=== PATIENT | female | born 1980 | race Caucasian/White ===

== ENCOUNTER 2024-11-28 07:03 | Day surgery (SDC) | payer OTHER, SELFPAY ==
[2024-11-20 13:03] VITALS: BMI 23.0
[2024-11-28] VITALS (8 sets, daily range): BP systolic 107–126; BP diastolic 77–95; PULSE 65–90; RESP 12–20; TEMP 36.2–36.8; O2SAT 96–100; BMI 23.1
--- OUTSIDE RECORDS SUMMARY | 2024-11-28 07:12 | XMS_ITS | Encounter Summary ---
Author Organization [facility] Address [facility] [place] [address] Care Team Providers Care Logistics Solution Manager Name Role Phone Celeste Grossman SUPERVISOR PAINT Primary Care Provider [phone] Encounter Details Date Type Department Care Team (Late st Contact Info) Description 06/20/2023 [place] [employer] Community Message [facility] Medical Group Family and Sports Medicine [place] [address] [place], [facility] Provider Appointment Social History Tobacco Use Types Packs/Day Years Used Date Smoking Tobacco: Former Cigarettes 1 23 Smokeless Tobacco: Never Alcohol Use Standard Drinks/Week Comments Yes 0 (1 standard drink = 0.6 oz pur e alcohol) RARELY PHQ-2 Answer Date Recorded Patient Health Questionnaire-2 Score 4 10/29/2022 Comments No Sex and Gender Information Value Date Recorded Sex Assigned at Female 07/11/2018 2:48 AM ROUTE DELIVERER Legal Sex Female 6:41 PM CDT Gender Identity Female 07/11/2018 2:48 AM ROUTE DELIVERER Sexual Orientation Not on file documented as of this encounter Functional Status * RETIRED Are you deaf or do you have serious difficulty hearing Answer Date of Assessment Author Status No 07/18/2018 10:48 PM CDT Acti ve * RETIRED Are you blind or do you have serious difficulty seeing, even when wearing glasses? Answer Date of Assessment Author Status No 07/18/2018 10:48 PM CDT Acti ve * Do you have serious difficulty walking or climbing stairs? Answer Date of Assessment Author Status Yes 07/18/2018 10:48 PM CDT Marbin Talamantes RN Active * Do you have difficulty dressing or bathing? Answer Date of Assessment Author Status No 07/18/2018 10:48 PM CDT Marbin Talamantes RN Active * Because of a physical, mental, or emotional condition, do you have difficulty doing errands alone such as visiting a doctor's office or shopping? Answer Date of Assessment Author Status No 07/18/2018 10:48 PM CDT Marbin Talamantes RN Active documented as of this encounter Mental Status * Because of a physical, mental, or emotional condition, do you have serious difficulty concentrating, remembering, or making decisions? Answer Entry Date Author Status No 07/18/2018 10:48 PM CDT Marbin Talamantes RN Active documented in this encounter Plan of Treatment Upcoming Encounters Date Type Department Care Team (Late st Contact Info) Description 02/04/2025 8:00 AM CDT Office Visit [facility] Medical Group Family and Sports Medicine - [place] [address] [place] [address] Celeste Grossman NP [address] [place] [address] documented as of this encounter Visit Diagnoses Not on filedocumented in this encounter Additional Health Concerns Assessment Noted Time PHQ-9 Depression Total Score: 14 023 8:41 AM CDT documented as of this encounter Care Teams Logistics Solution Manager Relationship Specialty Start Date End Date Celeste Grossman NP [address] [place] [address] PCP - General Nurse Practitioner Family 04/03/18 documented as of this encounter
--- OUTSIDE RECORDS SUMMARY | 2024-11-28 07:12 | XMS_ITS | Clinical Summary ---
Author Organization [facility] Address [address] [place] [address] Care Team Providers Care Grommet Worker Name Role Phone Celeste Grossman INTERACTIVE MEDIA MARKETING STRATEGIST Primary Care Provider [phone] Allergies Active Allergy Reactions Criticality Noted Date Comments Articaine Anaphylaxis High 07/27/2017 Molds & Smuts Unknown 02/15/2023 Penicillins Hives 06/17/2017 Medications vitamin B-12 1000 MCG tablet Take 1 tablet (1,000 mcg total) by mouth daily. Active cholecalcifero l (VITAMIN D3) 125 MCG (5000 UT) TabIndications :Vitamin D deficiency Take 1 tablet (5,000 Units total) by mouth daily. 30 tablet 07/24/19 22 Active budesonide-for moterol (SYMBICORT) 160-4.5 MCG/ACT inhalerIndicat ions:Wheezing Inhale 2 puffs into the lungs 2 (two) times daily. 10.2 g 5 07/24/19 22 Active Additional Information Patient not taking.Reported on 10/30/2024 albuterol sulfate HFA (VENTOLIN HFA) 108 (90 Base) MCG/ACT inhalerIndicat ions:Wheezing Inhale 2 puffs into the lungs every 4 (four) hours as needed for Wheezing or Shortness of breath. 18 g 3 07/24/19 22 Active Additional Information Patient not taking.Reported on 10/30/2024 ibuprofen (MOTRIN) 600 MG tablet Take 1 tablet (600 mg total) by mouth every 8 (eight) hours as needed. 06/29/19 23 Active traZODone (DESYREL) 50 MG tablet daily. 08/03/19 23 Active buPROPion XL (WELLBUTRIN XL) 300 MG 24 hr tablet Take 1 tablet (300 mg total) by mouth every morning. Active montelukast (SINGULAIR) 10 MG tabletIndicati ons:Seasonal allergic rhinitis, unspecified trigger TAKE 1 TABLET BY MOUTH EVERYDAY AT BEDTIME 90 tablet 3 06/18/19 25 Active celecoxib (CELEBREX) 100 MG capsuleIndicat ions:Chronic midline low back pain without sciatica TAKE 1 CAPSULE BY MOUTH 2 TIMES DAILY FOR 30 DAYS. 60 capsule 08/17/19 25 Active Additional Information Patient not taking.Reported on 10/30/2024 baclofen (LIORESAL) 10 MG tabletIndicati ons:Low back pain, unspecified TAKE 1 TABLET (10 MG TOTAL) BY MOUTH 3 (THREE) TIMES DAILY FOR 30 DAYS. 270 tablet 1 08/28/19 Active Additional Information Patient taking differently:10 mg Oral3 times daily PRN, Reported on 10/30/2024 hydrOXYzine (VISTARIL) 50 MG capsule take 1 capsule by mouth twice a day as needed 06/22/19 25 Active levothyroxine (SYNTHROID) 100 MCG tabletIndicati ons:Hypothyroi dism (acquired) Take 1 tablet (100 mcg total) by mouth every morning. 90 tablet 1 11/02/19 25 Active tirzepatide (ZEPBOUND) 5 MG/0.5ML injectionIndic ations:Weight Loss Inject 5 mg into the skin once a week. Indications: Weight Loss 2 mL 11/28/19 25 Active escitalopram 10 MG tablet Take 1 tablet (10 mg total) by mouth daily. 05/25/19 22 025 Discontinued(T herapy completed) ARIPiprazole (ABILIFY) 2 MG tablet Take 1 tablet (2 mg total) by mouth daily. 01/22/20 025 Discontinued(T herapy completed) cyclobenzaprin e (FLEXERIL) 10 MG tablet Take 1 tablet (10 mg total) by mouth as needed. 025 Discontinued(T herapy completed) levothyroxine (SYNTHROID) 88 MCG tabletIndicati ons:Hypothyroi dism (acquired) TAKE 1 TABLET BY MOUTH EVERY DAY 90 tablet 1 05/31/19 25 025 Discontinued(D ose adjustment) semaglutide (OZEMPIC) 1 mg/dose injection (PEN)Indicatio ns:Prediabetes INJECT 1MG INTO THE SKIN ONCE A WEEK 2 mL 3 06/04/19 25 025 Discontinued(T herapy completed) hydrOXYzine (ATARAX) 50 MG tablet Take 1 tablet (50 mg total) by mouth 2 (two) times daily as needed for Other (.). 025 Discontinued(T herapy completed) ABILIFY 5 MG tablet Take 1 tablet (5 mg total) by mouth daily. 025 Discontinued(T herapy completed) gabapentin (NEURONTIN) 300 MG capsuleIndicat ions:Left hip pain TAKE 3 CAPSULES BY MOUTH 2 TIMES A DAY. 180 capsule 10/23/19 25 025 Discontinued(T herapy completed) tirzepatide (ZEPBOUND) 2.5 MG/0.5ML injectionIndic ations:Weight Loss Inject 2.5 mg into the skin once a week. Indications: Weight Loss 2 mL 10/31/19 25 025 Discontinued Active Problems Problem Noted Date Diagnosed Date Other chest pain 11/08/2021 Dyslipidemia 11/08/2021 Cocaine dependence in remission ([facility] ) 10/20/2021 Opioid dependence ([facility]) 10/20/2021 Posttraumatic stress disorder 10/20/2021 Narcotic abuse in remission 12/28/2020 Current moderate episode of major depressive disorder, unspecified whether recurrent 04/04/2018 Anxiety 04/04/2018 Hypothyroidism (acquired) 04/04/2018 IBS (irritable bowel syndrome) 07/27/2017 Sacroiliitis 07/13/2017 Chronic low back pain 07/13/2017 Chronic pain 02/11/2016 Allergic rhinitis 08/16/2014 Lumbar degenerative disc disease 02/27/2014 MVP (mitral valve prolapse) 08/13/2013 Resolved Problems Problem Noted Date Diagnosed Date Resolved Date Surgical followup 08/02/2018 11/22/2019 Closed fracture of left tibi al plateau, initial encounter 07/17/2018 11/22/2019 Tibial plateau fracture, left 07/11/2018 11/22/2019 Chronic bilateral low back p ain without sciatica 04/04/2018 11/22/2019 Sinusitis 01/03/2018 11/22/2019 Encounters Date Type Department Care Team Description 11/01/2024 Results Follow-Up [facility] [address] [place] [address] Celeste Grossman, IRAIS HEMOGLOBIN, GLYCOSYLATED, TSH W/REFLEX, LIPID PANEL, Additional followed-up results: 2 10/30/2024 11:50 AM CDT Laboratory Only [facility] [address] [place] [phone] Celeste Grossman NP 10/30/2024 11:40 AM CDT Office Visit [facility] [address] [place] [phone] Celeste Grossman, IRAIS Weight Problem (Since stopping Ozempic she has gained. Thyroid issues? Insurance change- Ozempic no longer covered. Stopped Vaping 10/15/24 and no longer takes Gabapentin due to reading that it could effect weight.) 10/30/2024 MyChart Message Enc [facility] [address] [place] [phone] [place], [facility] Provider Zepbound 10/30/2024 Travel 10/23/2024 12:45 PM CDT - 10/23/2024 11:59 PM CDT Hospital Encounter [facility] Mammography [address] [place] [address] Celeste Grossman, INTERACTIVE MEDIA MARKETING STRATEGIST Discharge Disposition: Home or Self Care (Routine Discharge) 10/23/2024 Results Follow-Up [facility] [address] [place] [address] Celeste Grossman, IRAIS MG SCREENING W CYDNEY ABILIO DIGI 10/23/2024 Travel from Last 3 Months Immunizations Immunization Administration Dates Next Due Afluria 36 MONTHS+ (Prefille d Syringe IIV4) 07/19/2018(Deferred: Patient/family declined) Fluzone (IIV3, Trivalent, 0. 5 ML Prefilled Syringe) 02/13/2024 Fluzone 6 Months+ Quad (0.5 mL Prefilled Syringe) 02/15/2023,01/15/2019 PFIZER COVID-19 (ORIGINAL FORMULATION, PURPLE CAP) mRNA, LNP-S, PF, 30 MCG/0.3 ML DOSE 07/10/2020,06/17/2020 Td, Adsorbed, Preservative F ree, Adult Use, Lf Unspecified 04/20/2006 Tdap (Boostrix) 09/23/2018 Tdap (Generic) 09/23/2018 Family History Medical History Relation Comments Hypertension Father Alcohol Abuse Mother Arthritis Mother Cancer Mother Depression Mother Hypertension Mother Breast Cancer Other Diabetes Other Stroke Other Relation Status Comments Father Alive Mother Alive Other Social History Tobacco Use Types Packs/Day Years Used Date Smoking Tobacco: Former Cigarettes 1 23 Passive Smoke Exposure: Past Smokeless Tobacco: Never Tobacco Cessation:Counseling Given: Yes Alcohol Use Standard Drinks/Week Comments Not Currently 0 (1 standard drink = 0.6 oz pur e alcohol) RARELY PHQ-2 Answer Date Recorded Patient Health Questionnaire-2 Score 0 07/04/2023 Comments No Sex and Gender Information Value Date Recorded Sex Assigned at Female 07/11/2018 2:48 AM DECK CADET Legal Sex Female 6:41 PM CDT Gender Identity Female 07/11/2018 2:48 AM DECK CADET Sexual Orientation Not on file Last Filed Vital Signs Vital Sign Reading Time Taken Comments Blood Pressure 139/89 10/30/2024 11:37 AM CDT Pulse 66 10/30/2024 11:37 AM CDT Temperature 36.6 C (97.9 F) 10/30/2024 11:37 AM CDT Respiratory Rate 18 10/30/2024 11:37 AM CDT Oxygen Saturation 99% 10/30/2024 11:37 AM CDT Inhaled Oxygen Concentration - - Weight 60.1 kg (132 lb 6.4 oz) 10/30/2024 11:37 AM CDT Height 152.4 cm (5') 10/30/2024 11:37 AM CDT Body Mass Index 25.86 10/30/2024 11:37 AM CDT Plan of Treatment Upcoming Encounters Date Type Department Care Team (Late st Contact Info) Description 02/04/2025 8:00 AM CDT Office Visit [facility] Medical Group Family and Sports Medicine - [place] [address] [place] [address] Celeste Grossman, INTERACTIVE MEDIA MARKETING STRATEGIST [address] [place] [address] Health Maintenance Due Date Last Done Comments Cervical Cancer Screening Pa p Smear (Age 30 to 64) Every 3 Years 1980 HPV Vaccines (1 - 3-dose SCD M series) 02/28/2007 COVID-19 Vaccine ( - 2023-2 5 season) 2024 07/10/2020, 06/17/2020 PHQ-2 (Physician [place]) 05/09/2024 07/04/2023 Annual Physical 06/14/2025 06/14/2024, 07/04/2023, 05/13/2022 Mammogram Screening 10/23/2026 10/23/2024, 07/21/2022 Cervical Cancer Screening Pa p with HPV Testing (Age 30 to 64) Every 5 Years 11/16/2027 11/15/2022, 09/27/2017, 09/26/2017 Cervical Cancer Screening with HPV 11/16/2027 DTaP, Tdap and Td Vaccines ( 3 - Td or Tdap) 09/23/2028 09/23/2018, 09/23/2018, 04/20/2006 Pneumococcal Vaccine: Pediatrics (0 to 5 Years) and At-Risk Patients (6 to 49 Years) (1 of 2 - PCV) 02/28/2047 Postponed from (Per Provider Recommendation) Hepatitis B Vaccines (1 of 3 - 19+ 3-dose series) 06/14/2089 Postponed from 02/07 (Per Provider Recommendation) Hepatitis C Completed 07/23/2021 Meningococcal B Vaccine Aged Out No l onger eligible based on patient's age to complete this topic Meningococcal Vaccine Aged Out No ligia ofe eligible based on patient's age to complete this topic RSV Immunizations Under 20 Months Aged Out No longer eligible b ased on patient's age to complete this topic Medical Devices Implanted Type Area Php Mysql Developer Device Identifier Shelf Expiration Date Model / Serial / Lot Graft Bone Canc 15ml Cube - [id number] Implanted:Qty: 1 on 07/18/2018 by Eliezer Madrigal MD at [facility] Left: Tibia [employer] 06/05/2023 [id number] / / [id number] Locking Cannulated Screw Implanted:Qty: 1 on 07/18/2018 by Eliezer Madrigal MD at [facility] Left: Tibia [id number] / / Tibial Plate Implanted:Qty: 1 on 07/18/2018 by Eliezer Madrigal MD at [facility] Left: Tibia [id number] / / Cannulated Screw Implanted:Qty: 1 on 07/18/2018 by Eliezer Madrigal MD at [facility] Left: Tibia [id number] / / Cannulated Screw Implanted:Qty: 1 on 07/18/2018 by Eliezer Madrigal MD at [facility] Left: Tibia [id number] / / Locking Screw Implanted:Qty: 1 on 07/18/2018 by Eliezer Madrigal MD at [facility] Left: Tibia [id number] / / Locking Screw Implanted:Qty: 1 on 07/18/2018 by Eliezer Madrigal MD at [facility] Left: Tibia [id number] / / Cortex Screw Implanted:Qty: 1 on 07/18/2018 by Eliezer Madrigal MD at [facility] Left: Tibia [id number] / / Cortex Screw Implanted:Qty: 1 on 07/18/2018 by Eliezer Madrigal MD at [facility] Left: Tibia [id number] / / Locking Cannulated Screw Implanted:Qty: 1 on 07/18/2018 by Eliezer Madrigal MD at [facility] Left: Tibia [id number] / / Procedures Procedure Name Priority Date/Time Associated Diagnosis Comments THYROXINE, FREE (FT4) Routine 10/30/2024 12:10 PM CDT COMPREHENSIVE METABOLIC PANEL Routine 10/30/2024 12:10 PM CDT Screening, lipid LIPID PANEL Routine 10/30/2024 12:10 PM CDT Screening, lipid TSH W/REFLEX Routine 10/30/2024 12:10 PM CDT Screening for thyroid disorder HEMOGLOBIN, GLYCOSYLATED Routine 10/30/2024 12:10 PM CDT Screening for diabetes mellitus (DM) COLLECTION VENOUS BLOOD VENIPUNCTURE Routine 10/30/2024 12:06 PM CDT Hypothyroidism (acquired) MG SCREENING W CYDNEY ABILIO DIGI Routine 10/23/2024 1:02 PM CDT Screening mammogram, encounter for OUTSIDE CYTOPATH CERV/VAG INTERPRET (PAP) 11/15/2022 HEPATITIS C ANTIBODY Routine 07/23/2021 9:48 AM CDT Need for hepatitis C screening test from Last 3 Months or Most Recently Relevant to Health Maintenance Results * (ABNORMAL) TSH W/REFLEX (10/30/2024 12:10 PM CDT) TSH 8.979(H) 0.358 - 3.740 uIU/ML 10/31/2024 3:34 PM CDT [facility] 10/30/2024 12:1 0 PM CDT us Celeste Grossman NP LABORATORY Final Result [facility] [address] [place] [address], [place] [phone] * HEMOGLOBIN, GLYCOSYLATED (10/30/2024 12:10 PM CDT) HGB A1C 4.7 4.5 - 6.2 % 10/31/2024 3:19 PM CDT [facility] ESTIMATED AVG GLUCOSE 88 74 - 106 MG/DL 10/31/2024 3:19 PM CDT [facility] 10/30/2024 12:1 0 PM CDT Celeste Peralta Chauncey INTERACTIVE MEDIA MARKETING STRATEGIST LABORATORY Final Result [facility] [address] [place] [address], * COMPREHENSIVE METABOLIC PANEL (10/30/2024 12:10 PM CDT) SODIUM S/P/B 142 136 - 145 MMOL/L 10/31/2024 3:34 PM CDT -[facility] POTASSIUM S/P/B 4.8 3.5 - 5.1 MMOL/L 10/31/2024 3:34 PM CDT [facility] CHLORIDE S/P/B 103 98 - 107 MMOL/L 10/31/2024 3:34 PM CDT [facility] CO2 27.7 21 - 32 MMOL/L 10/31/2024 3:34 PM CDT -[facility] GLUCOSE 79 70 - 99 MG/DL 10/31/2024 3:34 PM CDT -[facility] BUN 13 7 - 18 MG/DL 10/31/2024 3:34 PM CDT -[facility] CREATININE S/P/B 0.77 0.55 - 1.02 MG/DL 10/31/2024 3:34 PM CDT [facility] CALCIUM S/P/B 9.4 8.4 - 10.5 MG/DL 10/31/2024 3:34 PM CDT -[facility] BILIRUBIN TOTAL S/P/B 0.5 0.2 - 1.0 MG/DL 10/31/2024 3:34 PM CDT -[facility] ALKALINE PHOSPHATASE S/P/B 50 37 - 98 U/L 10/31/2024 3:34 PM CDT [facility] AST 19 15 - 37 U/L 10/31/2024 3:34 PM CDT [facility] ALT 26 14 - 59 U/L 10/31/2024 3:34 PM CDT [facility] TOTAL PROTEIN S/P/B 7.2 6.4 - 8.2 G/DL 10/31/2024 3:34 PM CDT [facility] ALBUMIN S/P/B 4.3 3.4 - 5.0 G/DL 10/31/2024 3:34 PM T [facility] ANION GAP 11.3 5 - 15 MMOL/L 10/31/2024 3:34 PM T [facility] Comment:REFERENCE RANGE NOT ESTABLISHED OSMOLALITY (CALC) 293 MOSM/KG 025 3:34 PM T [facility] Comment:REFERENCE RANGE NOT ESTABLISHED GFR ESTIMATE >90 >90 ML/MIN/1. 73 M2 10/31/2024 3:34 PM T [facility] GFR NOTES GFR REFERENCE S: 10/31/2024 3:34 PM T [facility] Comment: THE ESTIMATED GFR IS CALCULATED USING THE 2020 CKD-EPI EQUATION. THE FOLLOWING CATEGORIES FOR GRADING RENAL FUNCTION ARE RECOMMENDED BY THE INTERNATIONAL SOCIETY OF NEPHROLOGY (KDIGO 2012 CLINICAL PRACTICE GUIDELINE). G1,NORMAL OR HIGH: >89 ml/min/1.73 m2 G2,MILDLY DECREASED: 60-89 ml/min/1.73 m2 G3A,MILDLY TO MODERATELY DECREASED: 45-59 ml/min/1.73 m2 G3B,MODERATELY TO SEVERELY DECREASED: 30-44 ml/min/1.73 m2 G4,SEVERELY DECREASED: 15-29 ml/min/1.73 m2 G5,KIDNEY FAILURE: <15 ml/min/1.73 m2 10/30/2024 12:1 0 PM CDT Celeste M Grossman INTERACTIVE MEDIA MARKETING STRATEGIST LABORATORY Final Result [facility] [address] [place] [address], * (ABNORMAL) LIPID PANEL (10/30/2024 12:10 PM CDT) CHOLESTEROL 253(H) <200 MG/DL 10/31/2024 3:34 PM CDT [facility] TRIGLYCERIDES 76 <150 MG/DL 10/31/2024 3:34 PM CDT [facility] HDL 105 >40 MG/DL 10/31/2024 3:34 PM CDT [facility] LDL-C 133(H) <100 MG/DL 10/31/2024 3:34 PM CDT [facility] VLDL CALCULATION 15 5 - 28 MG/DL 10/31/2024 3:34 PM CDT [facility] CHOL/HDL RATIO 2.4 0.0 - 4.0 10/31/2024 3:34 PM CDT [facility] LDL/HDL 1.3 0.41 - 2.13 10/31/2024 3:34 PM CDT [facility] NON HDL CHOLESTEROL 148(H) <140 MG/DL 10/31/2024 3:34 PM CDT [facility] 10/30/2024 12:1 0 PM CDT us Celeste Grossman INTERACTIVE MEDIA MARKETING STRATEGIST LABORATORY Final Result [facility], [address] [place] [address], * THYROXINE, FREE (FT4) (10/30/2024 12:10 PM CDT) FREE T4 0.86 0.76 - 1.46 NG/DL 10/31/2024 3:59 PM CDT [facility] [place] 10/30/2024 12:1 0 PM CDT Celeste Grossman NP LABORATORY Final Result -[facility]REG[facility] PEDRAZA [address] [facility] [place] [address], [place] [phone] * MG SCREENING W CYDNEY ABILIO DIGI (10/23/2024 1:02 PM CDT) Anatomical Region Laterality Modality Breast Bilateral Mammography 10/23/2024 1:43 PM CDT Impressions 10/23/2024 1:44 PM CDT IMPRESSION: No suspicious mammographic findings. Recommendation: 1. Routine Screening, Bilateral Assessment: ACR BI-RADS 2 - BENIGN FINDING(S) Ordered By: YEIMY KUHN Interpreted By: Luis Alfredo Torres, 10/23/2024 1:43 PM Narrative 10/23/2024 1:44 PM CDT [address] [address] Examination: Screening bilateral mammogram Exam Date/Time: 10/23/2024 12:45 PM Clinical history: No current complaints. Comparison: 07/21/2029 Technique: Digital screening mammography of both breasts was performed. Breast tomosynthesis acquisitions were obtained and reviewed. This study was read with the assistance of a computer-aided detection system. Tissue density: There are scattered areas of fibroglandular density. Findings: No suspicious masses, malignant appearing calcifications, skin thickening or other abnormalities are present. No significant change from the prior exam. Yeimy Kuhn MD MAMMO Final Result * PAP SMEAR WITH HPV (11/15/2022) 11/15/2022 [facility] Scanned SCANNING Final Resu lt * HEPATITIS C ANTIBODY (07/23/2021 9:48 AM CDT) HEPATITIS C AB NON-REACTI VE NON-REACT JULIANA 07/23/2021 6:35 PM CDT [facility] Comment: ANTIBODIES TO HCV NOT DETECTED. DOES NOT EXCLUDE THE POSSIBILITY OF EXPOSURE TO HCV. 07/23/2021 9:48 AM CDT Celeste Grossman INTERACTIVE MEDIA MARKETING STRATEGIST LABORATORY Final Result [facility] [address] [place] [address], [id number] from Last 3 Months or Most Recently Relevant to Health Maintenance Insurance [facility] Advance Directives * Full Code (Latest Code Status on File) Date Activated Date Inactivated Comments 07/18/2018 9:32 PM 07/19/2018 2:03 PM * Full Code Date Activated Date Inactivated Comments 07/11/2018 3:35 AM 07/13/2018 4:04 PM Care Teams Grommet Worker Relationship Specialty Start Date End Date Celeste Grossman, INTERACTIVE MEDIA MARKETING STRATEGIST [address] [place], [place] [id number] PCP - General Nurse Practitioner Family 04/03/18
--- OUTSIDE RECORDS SUMMARY | 2024-11-28 07:12 | XMS_ITS | Data Portability ---
Author Organization [facility] , [facility] Address [address] [place] [address] Assessment No assessment recorded. Plan of Treatment Reminders Order Date Submit Date Provider Last Modified By Organization Details Last Modified Time Details Appointments None recorded. Lab lh + FSH, serum 2023 024 [employer] [facility]ja, [address] [place], [address], 4 13:32:40 testosteron e, free + total, serum 2023 024 Glyde [facility], [address] [place], [address], 4 20:13:53 HPV E6+E7 mRNA, qualitative PCR, cervix 2022 023 [employer] Benja, [address] [place], [address], 3 15:32:16 pap, LB 2022 023 Glyde [facility], [address] [place], [address], 3 21:02:34 Referral None recorded. Procedures None recorded. Surgeries None recorded. Imaging MAMMO, screening, digital, bilateral 2023 024 [email or web address] Not available 5 08:41:02 MAMMO, screening, digital, bilateral 2022 023 [email or web address] Not available 3 12:54:40 Medication Orders Wellbutrin XL 300 mg 24 hr tablet, extended release 2022 023 [facility] [id number], [address], 3 08:48:47 Lexapro 10 mg tablet 2022 023 [facility] [id number], [address], 3 18:48:13 estradiol 1 mg tablet 2021 022 [email or web address] [facility] [id number], [address], 4 14:45:10 Lexapro 10 mg tablet 2021 022 [facility] [id number], [address], 2 13:01:27 Patient TargetsNo targets recorded. Patient Instructions Encounter Date Encounter Id Patient Instructions Last Modified By Organization Details Last Modified Time 11/15/2022 [id number] A healthy lifestyle: care instructions Not available 11/15/2022 16:22:32 substance use disorder: care instructions Not available 11/15/2022 16:22:33 tobacco cessation Not availabl e 11/15/2022 16:22:32 Following the My[employer] Food Guide: Care Instructions Not available 11/15/2022 16:22:33 exercise program : getting started Not available 11/15/2022 16:22:33 control counseling Not available 11/15/2022 16:22:33 11/18/2023 [id number] body mass index: care instructions Not available 11/18/2023 15:40:42 mammogram: about this test Not available 11/18/2023 15:40:42 Reason for Referral None Reported. Results Created Date Observation Date Name Description Value Unit Range Abnormal Flag Note LastModifiedBy Organization Detail LastModifiedTime 11/22/19 24 11/22/2023 TESTO STERO NE, FREE (DIAL YSIS) AND TOTAL ,MS testosterone , total, MS 23 NG/dL 2-45 For addit ional infor mariana nlucy refer to https ://ed ucati on.qu [employer]. [employer]/f aq/FA Q165 (This link is being provi ded for infor matio nal/e ducat ional purpo ses only. ) (Note ) This test was devel oped and its jules tical perfo rmanc e ruth cteri stics have been deter mined by [employer]. It has not been clear ed or appro axel by the FDA. This assay has been valid ated pursu ant to the CLIA regul ation s and is used for clini joe purpo ses. Not Available [facility] [address] [place], [address], 11/22/2023 20:13:53 11/22/19 24 11/22/2023 TESTO STERO NE, FREE (DIAL YSIS) AND TOTAL ,MS testosterone , free 1.3 pg/mL 0.1-6. 4 (Note ) This test was devel oped and its jules tical perfo rmanc e ruth cteri stics have been deter mined by [employer]. It has not been clear ed or appro axel by the FDA. This assay has been valid ated pursu ant to the CLIA regul ation s and is used for clini joe purpo ses. MDF med fusio n [address] [facility] [address] [facility] [address] [phone] Flor Perla MD, PhD NO COLLE CTION DATE RECEI AXEL. WE HAVE USED THE DATE THE SPECI MEN WAS RECEI AXEL BY THIS LABOR ATORY THE COLLE CTION DATE. IF THIS IS INCOR RECT, PLEAS E CONTA CT CLIEN T SERVI MARBELLA. PHONE NUMBE R: [phone] Not Available [address] [address] [place], [address], 11/22/2023 20:13:53 11/16/19 23 11/16/2022 HPV HIGH RISK HPV high risk Negati ve negati ve normal The HPV High Risk assay is inten ded for use as co-te sting with cytol ogy and not as a subst itute for regul ar cervi joe cytol ogy scree johnny. This assay is not inten ded for use as a scree johnny devic e for women under age 30 with kassandra l cervi joe cytol ogy. Not Available [address], [address], 11/16/2022 15:32:16 11/16/19 23 11/17/2022 THINP REP TIS PAP clinical information: normal None given Not Available [employer] [address] [address] [place], [address], 11/17/2022 21:02:34 11/16/19 23 11/17/2022 THINP REP TIS PAP LMP: normal None given Not Available [employer] [address], [address], 11/17/2022 21:02:34 11/16/19 23 11/17/2022 THINP REP TIS PAP prev. Pap: normal None given Not Available [employer] [address] [address] [place], [address], 11/17/2022 21:02:34 11/16/19 23 11/17/2022 THINP REP TIS PAP prev. BX: normal None given Not Available [employer] [address] [address] [place], [address], 11/17/2022 21:02:34 11/16/19 23 11/17/2022 THINP REP TIS PAP source: normal None given Not Available [employer] [address] [address] [place], [address], 11/17/2022 21:02:34 11/16/19 23 11/17/2022 THINP REP TIS PAP statement of adequacy: normal Satis facto ry for evalu ation . Endoc ervic al/tr ansfo rmati on zone compo nent prese nt. Age and/o r menst rual statu s not provi ded Not Available [address] [address] [place], [address], 11/17/2022 21:02:34 11/16/19 23 11/17/2022 THINP REP TIS PAP interpretati on/result: normal Cytol ogy Resul ts: Negat criselda for intra epith elial lesio n or mak ziegler . Not Available [address] [address] [place], [address], 11/17/2022 21:02:34 11/16/19 23 11/17/2022 THINP REP TIS PAP comment: normal This Pap test has been evalu ated with compu ter ramakrishna lul [employer] ology . Not Available [address] [address] [place], [address], 11/17/2022 21:02:34 11/16/19 23 11/17/2022 THINP REP TIS PAP cytotechnolo gist: normal MVB, CT( CP) CT Scree johnny Locat ion: [address] [address] [place] [address] Not Available [address] [address] [place], [address], 11/17/2022 21:02:34 11/16/19 23 11/17/2022 THINP REP TIS PAP comment EXPLA NATOR Y NOTE: The Pap is a scree johnny test for cervi joe cance r. It is not a diagn ostic test and is subje ct to false negat criselda and false posit criselda resul ts. It is most relia ble when a satis facto ry sampl e, regul andree obtai niles, is submi tted with relev ant clini joe findi ngs and histo ry, and when the Pap resul t is evalu ated along with histo sekou and curre nt clini joe infor mariana n. Not Available [facility] [address] , [place], [address], 11/17/2022 21:02:34 11/18/19 24 11/21/2023 FSH AND LH FSH 12.0 mIU/m L Refer ence Range s are for femal es aged 18 years - Adult Kassandra l Menst ruati ng Femal e: Folli cular phase : 2.5-1 0.2 mIU/m L Mid-C ycle Peak: 3.4-3 3.4 mIU/m L Lutea l phase : 1.5-9 .1 mIU/m L Pregn ant: <0.3 mIU/m L Post- menop ausal : 23.0- 116.6 mIU/m L Not Available [facility] [address] [place] [address], [address], 11/21/2023 13:32:40 11/18/19 24 11/21/2023 FSH AND LH LH 12.86 U/L Refer ence Range s are for femal es aged 18 years - Adult Kassandra l Menst ruati ng Femal e: Folli cular phase : 1.9-1 2.5 mIU/m L Mid-C ycle Peak: 8.7-7 6.3 mIU/m L Lutea l phase : 0.5-1 6.9 mIU/m L Pregn ant: <0.1- 1.5 mIU/m L Post- menop ausal : 15.9- 54.0 mIU/m L Contr acept sara: 0.7-5 .6 mIU/m L Not Available [place], [address], 11/21/2023 13:32:40 Result Notes None recorded. Problems Name Problem SNOMED Code Status Onset Date Resolution Date Notes Provider Name and Address Organization Details Recorded Time Finding of pattern of menstrua l cycle 863448218 Completed 201905/25/2021 Excessive and frequent menstruat ion with irregular cycle; Severity: Moderate Progress: Stable Added By: Hortencia Severino Add to Current Problems: YES ProblemSt atus: Current Eve rockwell, [facility] 2 11:59:23 Pain in coccyx 32827393 Completed 201905/25/2021 Sacrococc ygeal disorders , not elsewhere classifie d; Severity: Moderate Progress: Stable Added By: Brendan Perry Add to Current Problems: YES ProblemSt atus: Current Eve rockwell, [facility] 2 11:59:28 Problem Notes None recorded. Procedures Surgical History Date Name Laterality Status Provider Name and Address Organization Details Recorded Time 11/16/19 23 Date of Last Pap Smear completed Mary Grant MD [employer] IV 11/18/2023 14:37:10 10/24/19 23 Most Recent Mammogram completed John Steph [facility] 11/15/2022 15:41:00 04/09/20 20 Hysteroscopy ablation completed Brendan Perry MD [address] [place], [address] 05/25/2021 12:44:36 04/08/20 19 open reduction of fracture of tibia with internal fixation completed Anne Caidylanjosue [facility] 11/18/2023 14:55:52 procedure on foot completed Debi Hayden [facility] 05/22/2021 13:17:03 Imaging Results None recorded. Procedure Notes None recorded. Medical Equipment None Reported. Allergies Allergen ID Allergen Name Allergen Category Reaction Reaction Severity Criticality Documentation Date Start Date Code Code System Note Provider Name and Address Organization Details Recorded Time 775283 Product containin g penicilli n (product) medicatio n Not available Not available Not available 02/27/20212019 53078 8001 SNOMED Sever ity: Moder ate; Not Available [employer] 01:19:21 259649 articaine Not available Not available Not available Not available 02/27/20212019 04288 4 RxNorm [facility], [facility] 14:35:06 633687 house dust allergeni c extract environme nt,medica tion Not available Not available Not available 11/15/2022 14231 9 RxNorm [facility] 3 15:31:57 674051 mold extract environme nt Not available Not available Not available 11/15/2022 69295 8 RxNorm oHrtencia rockwell, [facility] 3 15:31:57 Medications Name Sig Start Date Stop Date Status Note LastModified by Organization Details LastModified Time cyclobenz aprine 10 mg tablet TAKE 1 TABLET BY MOUTH THREE TIMES A DAY NEEDED FOR MUSCLE SPASMS 11/17 completed Not Available Not Available Not Available venlafaxi ne 75 mg tablet take 1 tablet (75 mg) by oral route 2 times per day with food 11/15 completed venlafax ine 75 mg oral tablet RxNorm: 736849 Allow Substitu tion: False Refill Denied: No Refill DateOccu rred: 05/30/19 Edited by: Hortencia Constantino ) on 05/30/19 Stopped by: Hortencia Constantino ) on Not Available Not Available Not Available clindamyc in HCl 300 mg capsule TAKE 1 CAPSULE BY MOUTH 4 TIMES A DAY FOR 7 DAYS 11/17 completed Not Available Not Available Not Available trazodone 50 mg tablet TAKE 1 TABLET BY MOUTH EVERY DAY AT BEDTIME NEEDED FOR 30 DAYS active Not Available Not Available No t Available Vivelle-D ot 0.1 mg/24 hr transderm al patch apply 1 patch by transder mal route twice weekly 05/25 completed Vivelle- Dot 0.1 mg/24 hr Transder mal Patch, Transder mal Semiweek ly RxNorm: 593545 Allow Substitu tion: True Refill Denied: No Edited by: Brendan Bhakta) on 02/19/20 Stopped by: Brendan Bhakta) on Not Available Not Available Not Available ibuprofen 800 mg tablet take 1 tablet (800 mg) by oral route 3 times per day with food for the 1st 2 days and then q8 hrs as needed 11/15 completed ibuprofe n 800 mg oral tablet RxNorm: 989771 Allow Substitu tion: True Refill Denied: No Edited by: Brendan Bhakta) on 04/15/20 Stopped by: Brendan Bhakta) on Not Available Not Available Not Available prednison e 20 mg tablet TAKE 3 TABLETS DAILY FOR 3 DAYS, 2 TABLETS DAILY FOR 3 DAYS, THEN 1 TABLET DAILY FOR 3 DAYS 11/15 completed Not Available Not Available Not Available Prometriu m 100 mg capsule take 1 capsule orally qhs 05/25 completed Prometri um 100 mg oral capsule RxNorm: 279690 Allow Substitu tion: True Refill Denied: No Edited by: Brendan Bhakta) on 02/19/20 Stopped by: Brendan Bhakta) on Not Available Not Available Not Available sertralin e 100 mg tablet take 1 tablet (100 mg) by oral route once daily 11/17 completed sertrali ne 100 mg oral tablet RxNorm: 872604 Allow Substitu tion: False Refill Denied: No Refill DateOccu rred: 05/30/19 Edited by: Hortencia Constantino ) on 05/30/19 Stopped by: Hortencia Constantino ) on Not Available Not Available Not Available quetiapin e 200 mg tablet 05/25 completed Not Available Not Available Not Available clonazepa m 1 mg tablet take 1 tablet (1 mg) by oral route 2 times per day 05/25 completed clonazeP AM 1 mg oral tablet RxNorm: 122352 Allow Substitu tion: False Refill Denied: No Refill DateOccu rred: 05/30/19 Edited by: Hortencia Constantino ) on 05/30/19 Stopped by: Hortencia Constantino ) on Not Available Not Available Not Available hydroxyzi ne pamoate 50 mg capsule TAKE 1 CAPSULE BY MOUTH EVERY 6 HOURS NEEDED active Not Available Not Available No t Available metronida zole 500 mg tablet take 1 tablet (500 mg) by oral route 2 times per day and take with yogurt and start 2 days after the procedur e 05/25 completed metroNID AZOLE 500 mg oral tablet RxNorm: 666658 Allow Substitu tion: True Refill Denied: No Edited by: Brendan Bhakta) on 04/15/20 Stopped by: Brendan Bhakta) on Not Available Not Available Not Available hydroxyzi ne HCl 50 mg tablet TAKE 1 TABLET BY MOUTH TWICE A DAY NEEDED FOR 30 DAYS active Not Available Not Available No t Available acetamino phen 300 mg-codein e 30 mg tablet TAKE 1 TABLEY BY MOUTH EVERY 6 HOURS NEEDED FOR PAIN 11/15 completed Not Available Not Available Not Available quetiapin e 100 mg tablet TAKE 1 TABLET BY MOUTH EVERYDAY AT BEDTIME 11/17 completed Not Available Not Available Not Available lithium carbonate ER 450 mg tablet,ex tended release TAKE 1 TABLET BY MOUTH EVERYDAY AT BEDTIME 11/17 completed Not Available Not Available Not Available oxycodone -acetamin ophen 5 mg-325 mg tablet take 1 po q 6 hrs as needed for pain 05/25 completed oxyCODON E-acetam inophen 5-325 mg oral tablet RxNorm: 2770330 Allow Substitu tion: True Refill Denied: No Edited by: Brendan Bhakta) on 04/15/20 Stopped by: Brendan Bhakta) on Not Available Not Available Not Available levothyro xine 88 mcg tablet TAKE 1 TABLET BY MOUTH EVERY DAY active Not Available Not Available No t Available methocarb melody 750 mg tablet 05/25 completed Not Available Not Available Not Available estradiol 1 mg tablet TAKE 1 TABLET BY MOUTH EVERY DAY TO HELP PREVENT ABNORMAL BLEEDING OR BONE LOSS 11/17 completed Not Available Not Available Not Available baclofen 10 mg tablet TAKE 1 TABLET (10 MG TOTAL) BY MOUTH 3 (THREE) TIMES DAILY FOR 30 DAYS. active Not Available Not Available No t Available doxycycli ne monohydra te 100 mg capsule 1 capsule( or tab) po bid for 7 days and may substitu te any form of doxycycl ine 05/25 completed doxycycl ine monohydr ate 100 mg oral capsule RxNorm: 7799672 Allow Substitu tion: True Refill Denied: No Edited by: Brendan Bhakta) on 04/15/20 Stopped by: Brendan Bhakta) on Not Available Not Available Not Available levothyro xine 50 mcg tablet take 1 tablet (50 mcg) by oral route once daily 11/17 completed Not Available Not Available Not Available cephalexi n 500 mg capsule take 1 capsule (500 mg) by mouth twice a day for 10 days (started on 0) 05/25 completed cephALEX in 500 mg oral capsule RxNorm: 489410 Allow Substitu tion: False Refill Denied: No Refill DateOccu rred: 05/30/19 Edited by: Hortencia Constantino ) on 05/30/19 Stopped by: Hortencia Constantino ) on Not Available Not Available Not Available trazodone 150 mg tablet 05/25 completed Not Available Not Available Not Available gabapenti n 300 mg capsule TAKE 3 CAPSULES BY MOUTH 2 TIMES A DAY. active Not Available Not Available No t Available montel[address] st 10 mg tablet TAKE 1 TABLET BY MOUTH EVERYDAY AT BEDTIME active Not Available Not Available No t Available hydroxyzi ne HCl 25 mg tablet take 1 to 2 tablets (25 mg)po 3 times qd prn for nausea,h eadaches ,insomni a, anxiety, pain,may substitu e as a capsule or vistaril 05/25 completed hydrOXYz ine HCL 25 mg oral tablet RxNorm: 168440 Allow Substitu tion: True Refill Denied: No Edited by: Brendan Bhakta) on 04/15/20 Stopped by: Brendan Bhakta) on Not Available Not Available Not Available furosemid e 20 mg tablet TAKE 1 TABLET BY MOUTH EVERY DAY IN THE MORNING 11/15 completed Not Available Not Available Not Available gabapenti n 100 mg capsule 05/25 completed Not Available Not Available Not Available ibuprofen 600 mg tablet TAKE 1 TABLET BY MOUTH EVERY 8 HOURS NEEDED FOR PAIN 11/15 completed Not Available Not Available Not Available celecoxib 100 mg capsule TAKE 1 CAPSULE BY MOUTH 2 TIMES DAILY FOR 30 DAYS. active Not Available Not Available No t Available naproxen 500 mg tablet TAKE 1 TABLET BY MOUTH TWICE A DAY NEEDED 11/15 completed Not Available Not Available Not Available olanzapin e 5 mg disintegr ating tablet PLACE ONE (1) TABLET IN MOUTH AND ALLOW TO DISSOLVE ONCE A DAY, NEEDED FOR AGITATIO N active Not Available Not Available No t Available escitalop shira 10 mg tablet TAKE 1 TABLET BY MOUTH EVERY DAY 2024 active Not Available Not Available Not Avai lable aripipraz ole 5 mg tablet TAKE 1 TABLET BY MOUTH EVERY DAY active Not Available Not Available No t Available bupropion HCl XL 300 mg 24 hr tablet, extended release TAKE 1 TABLET BY MOUTH EVERY DAY IN THE MORNING active Not Available Not Available No t Available bupropion HCl XL 150 mg 24 hr tablet, extended release TAKE 1 TABLET BY MOUTH EVERY DAY IN THE MORNING FOR 30 DAYS active Not Available Not Available No t Available topiramat e 50 mg tablet 05/25 completed Not Available Not Available Not Available aripipraz ole 2 mg tablet TAKE 1 TABLET BY MOUTH EVERY DAY 11/17 completed Not Available Not Available Not Available quetiapin e 50 mg tablet 05/25 completed Not Available Not Available Not Available Symbicort 160 mcg-4.5 mcg/actua tion HFA aerosol inhaler inhale 2 puffs by inhalati on route 2 times per day in the morning andeveni ng 11/15 completed Symbicor t 160-4.5 mcg/actu ation Inhalati on HFA Aerosol Inhaler RxNorm: 8994341 Allow Substitu tion: False Refill Denied: No Refill DateOccu rred: 05/30/19 Edited by: Hortencia Constantino ) on 05/30/19 Stopped by: Hortencia Constantino ) on Not Available Not Available Not Available B12 active Not Available Not Availa ble Not Available Vitamin D3 125 mcg (5,000 unit) tablet active Vitamin D3 125 mcg (5,000 unit) oral tablet RxNorm: 181012 Allow Substitu tion: False Refill Denied: No Refill DateOccu rred: 05/30/19 Edited by: Brendan Bhakta) on 05/30/19 Stopped by: Brendan Bhakta) on Not Available Not Available Not Available Latuda 60 mg tablet 05/25 completed Not Available Not Available Not Available ProAir RespiClic k 90 mcg/actua tion breath activated inhale 1 - 2 puffs (90 - 180 mcg) by inhalati on route every 4 hours as needed 05/25 completed ProAir RespiCli ck 90 mcg/actu ation Inhalati on Aerosol Powder, Breath Activate d RxNorm: 2566514 Allow Substitu tion: False Refill Denied: No Refill DateOccu rred: 05/30/19 Edited by: madelyn( Hortencia Severino ) on 05/30/19 Stopped by: Hortencia Constantino ) on Not Available Not Available Not Available Ozempic 0.25 mg or 0.5 mg (2 mg/1.5 mL) subcutane ous pen injector INJECT 0.5 MG INTO THE SKIN EVERY 7 DAYS. 11/15 completed Not Available Not Available Not Available [facility] 75 mg disintegr ating tablet TAKE ONE TABLET 75MG EVERY OTHER DAY FOR MIGRAINE PREVENTI ON. 05/25 completed Not Available Not Available Not Available Ozempic 1 mg/dose (4 mg/3 mL) subcutane ous pen injector INJECT 1MG INTO THE SKIN ONCE A WEEK active Not Available Not Available No t Available Ozempic 0.25 mg or 0.5 mg (2 mg/3 mL) subcutane ous pen injector INJECT 0.5 MG INTO THE SKIN EVERY 7 DAYS. INDICATI ONS: DIABETES 11/17 completed Not Available Not Available Not Available Vitals Date Recorded Body height Body mass index (BMI) Body weight Body temperature Systolic And Diastolic Provider Name and Address Organization Details Last Updated DateTime 05/25/2021 152.4 cm 27.7 kg/m2 47960.6 8 g 97.2 [degF] 122/70 mm[Hg] Eve Vela [facility] 2 11:55:08 Date Recorded Body height Body mass index (BMI) Body weight Body temperature Systolic And Diastolic Provider Name and Address Organization Details Last Updated DateTime 11/15/2022 152.4 cm 24.3 kg/m2 75583.8 9 g 97 [degF] 100/60 mm[Hg] John Choi [facility] 3 15:42:59 Date Recorded Body height Body mass index (BMI) Body weight Body temperature Systolic And Diastolic Provider Name and Address Organization Details Last Updated DateTime 11/18/2023 152.4 cm 23.9 kg/m2 65788.9 9 g 97.9 [degF] 100/68 mm[Hg] Anne Garza [facility] 4 14:43:09 Social History Question Answer Notes LastModified by [employer] Details LastModified Time Tobacco Smoking Status Former Smoker Hortencia Garcia null, [facility] 11/15/2022 15:31:59 Are You Blind Or Do You Have Difficulty Seeing? No Information not available 11/15/2022 Are You Deaf Or Do You Have Serious Difficulty Hearing? No Information not available 11/15/2022 What Type Of Diet Are You Following? REGULAR [email or web address] Information not available 05/22/2021 What Is The Highest Grade Or Level Of School You Have Completed Or The Highest Degree You Have Received? [id number] Information not available 05/22/2021 When Did You Quit Smoking? 1-5yearssinc elastcigaret te Information not available 11/15/2022 How Many Children Do You Have? 3 [email or web address] Information not available 05/22/2021 Are There Any Occupational Health Risks Where You Work? Yes [email or web address] Information not available 05/22/2021 What Is Your Relationship Status? [email or web address] Information not available 05/22/2021 Are You Sexually Active? Yes [email or web address] Information not available 05/22/2021 How Much Tobacco Do You Smoke? 0.5 PPD [email or web address] Information not available 05/22/2021 Sex: Unknown Functional Status Question Answer Note LastModified by [employer] ion Details LastModified Time How many times per week do you consume alcohol? Less than 1 time per week Information not available 11/18/2023 Do you use any illicit or recreational drugs? No Information not available 05/22/2021 What is your level of alcohol consumption? Occasional Information not available 11/18/2023 Are you currently employed? 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 Current user of electronic cigarettes Information not available 11/15/2022 What is your exercise level? Occasional Information not available 11/15/2022 Mental Status None recorded. Family History Relationship Description Onset Age of this Age Resolved Age Notes LastModified by Organization Details LastModified Time Mother Deep venous thrombosis had PE during pregna ncy [email or web address] Not available 11/18/2023 14:33:27 Mother Hypothyroidi [facility]57 Not available 05/22 12:10:12 Mother Depressive disorder [email or web address] Not available 11/06 15:31:57 Father Hyperlipidem ia 9 Not available 2023 14:33:27 Father Essential hypertension [email or web address] Not available 04/2024 14:33:27 Father Hypertensive disorder [email or web address] Not available 11/06 15:31:57 Maternal Aunt Malignant tumor of breast 9 Not available 2023 14:33:27 Paternal Grandmother Diabetes mellitus Not available 05/22 12:09:50 Sister Hypothyroidi [facility]57 Not available 05/22 12:10:12 Sister Depressive disorder [email or web address] Not available 11/06 15:31:57 Unspecified Relation Malignant tumor of breast [email or web address] Not available 11/06 15:31:57 Maternal Grandmother Depressive disorder [email or web address] Not available 11/06 15:31:57 Paternal Grandfather Malignant neoplasm of lung [email or web address] Not available 11/06 15:31:57 Medical History Condition Response Other Cancer N High Blood Pressure N Colon Cancer N Cytomegalovirus N Hyperthyroidism N Breast Cancer N Herpes (HSV) N Blood Transfusion N MRSA N Lung Cancer N Hypothyroidism Y Depression Y Incontinence N Panic Attacks N Neurological Disorder N Deep Vein Thrombosis N Anxiety Disorder Y Autoimmune disease N Arthritis N Tuberculosis/Positive PPD N Shingles N Polycystic Ovarian Syndrome N Cervical Cancer N Chlamydia N Hematuria N Stroke N Varicosities N Crohn's Disease N Seasonal allergies Y Alzheimer's/Dementia N COPD/Emphysema N HPV/Genital Warts N Endometriosis N IBS (Irritable Bowel Syndrome) N History of Abnormal Pap N High Cholesterol N Liver Disease N Kidney Infection N Fibromyalgia N Ulcer N Kidney Disease N HIV N Gallbladder disease N Sickle Cell Disease/Trait N Von Willebrand disease N ADD/ADHD N Eating Disorder N Anemia N Diabetes Mellitus (non-insulin dependent ) N Ovarian Problems N Multiple Sclerosis N Gonorrhea N Frequent Urinary Tract infections N Osteopenia N Headaches/migraines N GERD (reflux) N Ovarian Cancer N Diabetes (insulin dependent) N Seizures/Epilepsy N Fibroids N Heart Attack N Asthma N Lupus N Endometrial Cancer N Rubella N Blood Clotting Disorder N Bipolar Disorder N Diabetes Mellitus (during ) N Ulcerative Colitis N Hepatitis N Heart Disease N Pulmonary Embolism N RPR N Chicken Pox N Osteoporosis N Gynecological History Statement/Question Response Date of last HPV 11/15/2022 Date of LMP Most Recent Bone Density HPV Vaccine N Date of Last Pap Smear 11/15/2022 Most Recent Mammogram 10/23/2022 Current Control Method Partner Vas ectomy Age at Menarche 9 Obstetrics History GPAL:G 4 P 3 0 1 3 Type Value Multiple Births 0 Full Term 3 Induced 0 Spontaneous 1 Premature 0 Living 3 Ectopics 0 Total 4 Past Encounters Encounter ID Performer Location Encounter Start Date Encounter Closed Date Diagnosis/Indication Diagnosis SNOMED-CT Code Diagnosis ICD10 Code Diagnosis Note [id number] Brendan Perry MD [address] [address] 05/25/2021 11:14:05 05/25/2021 13:03:31 Premenstrual dysphoric disorder 876890 F32.81 Discussed at length medication options and discussed with them they may feel more depressed for the first week secondary to increased REM sleep and sleep adjustment s. Patient is not suicidal and has no suicidal ideations. we will need to see her back in 8 weeks for a follow up and stressed the importance of close follow up as well as benefits of having a counselor. We discussed a healthy diet and exercise. We discussed length of time to be on medication s as well as to start slow with the medication and take 1/2 the dose for 7-28 days before increasing to full dose as well as tapering off slowly as well over a 1 month period of time [id number] Brendan Perry MD [address] [address] 11/15/2022 15:09:46 12/06/2022 10:26:48 Screening for malignant neoplasm of breast 900711318 Z12.39 Surveillan ce of contraception [id number] Z30.40 doesnt need Premenstru al dysphoric disorder 839811 F32.81 Discussed at length medication options and discussed with them they may feel more depressed for the first week secondary to increased REM sleep and sleep adjustment s. Patient is not suicidal and has no suicidal ideations. we will need to see her back in 8 weeks for a follow up and stressed the importance of close follow up as well as benefits of having a counselor. We discussed a healthy diet and exercise. We discussed length of time to be on medication s as well as to start slow with the medication and take 1/2 the dose for 7-28 days before increasing to full dose as well as tapering off slowly as well over a 1 month period of time Gynecologi c examination [id number] Z01.89 y.o. here for annual exam. - Pap up to date from , discussed natural course of HPV infection, ASCCP guidelines . Plan to repeat cotesting in - Contracept criselda counseling : Discussed options including OCPs, NuvaRing, Nexplanon, hormonal and copper IUDs. Discussed risks, benefits, and side effects of each option, including risk of VTE with hormonal contracept ion and uterine perforatio n with IUD. - Routine labs done with PCP - Mammo last year WNL, discussed option for yearly or q2 yr screening in 40s based on different guideline recommenda tions, pt without family hx, would like to proceed with q2yr screening, repeat next year - Depression screen NEG - BMI counseling , diet and exercise reviewed - RTO for annual or PRN Chronic constipation [id number] 104673 K59.09 TESTS/PROC EDURES: will get BMP as well as reflex tsh and magnesium level COUNSELING was provided today regarding the following topics: healthy eating habits. Patient education given on weight management . , regular exercise. Patient handout given on Fitness , discussed certain complicati ons that can occur with chronic constipati on such as urinary stress incontinen ce,prolaps e,and diverticul osis which could lead to diverticul itis and colostomy , and Genetic Counseling . RECOMMENDA TIONS given include: increase fluid intake . discussed constipati on FOLLOW-UP: Advised to call if there is no improvemen t. Schedule follow-up appointmen ts on a p.r.n. basis. if you have tried all of the meds which include bulking agents and laxatives including smooth move tea and have not had any luck we can try linzess and you may need to take 1 tab daily or every other day or 1/2 the capsule every 3rd day you just need to find what works for your body and continue taking that dose so you have a soft bowel movement every day to every other day . [id number] Brendan Perry MD [facility] [address] [place] [address] 11/18/2023 14:31:54 12/05/2023 15:12:11 Gynecologic examination [id number] Z01.89 y.o. here for annual exam. - Pap up to date from , discussed natural course of HPV infection, ASCCP guidelines . Plan to repeat cotesting in - Contracept criselda counseling : Discussed options including OCPs, NuvaRing, Nexplanon, hormonal and copper IUDs. Discussed risks, benefits, and side effects of each option, including risk of VTE with hormonal contracept ion and uterine perforatio n with IUD. - Routine labs done with PCP - Mammo last year WNL, discussed option for yearly or q2 yr screening in 40s based on different guideline recommenda tions, pt without family hx, would like to proceed with q2yr screening, repeat next year - Depression screen NEG - BMI counseling , diet and exercise reviewed - RTO for annual or PRN Screening for malignant neoplasm of breast [id number] Z12.31 Depression screening 171 418292 Z13.31 refer to intake screening Menopausal symptom 44628 002 N95.1 Additional diagnosis detail: Menopausal symptoms Reduced libido 3206436 R 68.82 Health Concerns Section Related Observation LastModified by Organization Detai ls LastModified Time None Recorded Concern Status LastModified by Organization Details LastModified Time None Recorded Advance Directives Directive None Recorded Payers Insurance Date Sequence Insurance Name Policy Number Policy Kelly Covered Member ID Kelly Member ID Guarantor Name 12/05/2023 1 [place] [id number] Chi Briones [id number] Cori Briones 11/18/2023 1 [employer] (PPO) [id number] Cori Briones [id number] Cori Briones 11/18/2023 2 RON Peralta Anali [id number] Cori Briones 11/18/2023 1 [facility] 669 Cori Peralta Anali [id number] Cori Peralta Anali Notes Date Note Type Note Provider Name and Address Organization Details Recorded Time 05/25/2021 text/html MenopauseReporte d bypatient.Quality:slee p issues; mood changes; hot flashes Severity:moderate Duration:intermittent Associated Symptoms:no abdominal pain; no pelvic pain; no abnormal bleeding; no vaginal discharge; no dysuria; no dispareunia; no changes in bowel function; no fever; no vaginal dryness; no skin changes; no changes in urination;irritability ;depression;anxiety Cori here for f/u after being on estradiol run out 1 week ago, Brendan Perry MD [address] [place] [address], [phone], [facility] [email or web address] 05/25/2021 13:03:21 11/15/2022 text/html Annual GYNReport ed bypatient.History:no gynecologic complaints Menstrual cycle:no periods Urinary symptoms:No hematuria Vulva:No genital lesion Vagina:Normal vaginal discharge Breast:No breast pain Current Contraception:Partner had vasectomy Sexual complaints:No sexual complaints Menopausal Symptoms:No menopausal symptoms Psychological symptoms:No depression; No anxiety Patient is here for annual exam, last pap 2019 Brendan Perry MD [address] [place] [address], [phone], [facility] [employer] 12/06/2022 08:49:33 11/18/2023 text/html Annual GYNReport ed bypatient.Menstrual cycle:Irregular cycle intervals(hasn't had menses since procedure) Urinary symptoms:No hematuria; No incontinence Vulva:No genital lesion Vagina:Normal vaginal discharge Breast:No breast pain; No breast lump; No nipple discharge Sexual complaints:No sexual complaints; No pain during intercourse; Normal libido Menopausal Symptoms:No menopausal symptoms; Normal vaginal lubrication Psychological symptoms:No depression; No anxiety; No PMDD some decreaased sex tdrive but hes not trying very hard Brendan Perry MD [address] [place], [phone], [facility] 12/02/2023 15:33:38 OBGyn Episode Ob Episode Information Episode Created Date Number of Fetuses Patient Bloodtype Patient rh Status Prepregnancy Weight lbs Domestic Partner Domestic Partner Phone Father Name Chief Station Engineer Status 11/18/19 1 CLOSED Fetus Data First Name Last Name Admitted to NICU Weight (g) Sex Living Outcome Pediatric Complications Fetus ID Race Codes Race Delivery Type 2891.64 9 F Full Term [id number] Jose Calculation Initial Jose Date Initial Exam Date Initial Exam Provider Initial Ultrasound Date Last Menstrual Period Date Ultra Sound Weeks Gestation 0 Eighteen To Twenty Week Jose Update Ultra Sound Date Fundal Height At Umbil Quickening Date Ultra Sound Latest Weeks Gestation Final Jose Confirmed By Final Jose Confirmed Date Final Jose Date Ultra Sound Latest Days Gestation 0 0 Menstrual History Last Menstrual Date Menses Monthly On Bcp Conception Prior Menses Frequency Hcg Plus Date Menarche Onset Age Delivery Information Delivery Date Delivery Type Labor Anesthesia Weeks Gestation Incision Type Labor Labor Length Hrs Delivered By Post Complications Tubal Sterilization Discharge Date Comments 1 41.5 Discharge Information Feeding Method Contraceptive Method Maternal HG B and HCT Levels Ob Episode Information Episode Created Date Number of Fetuses Patient Bloodtype Patient rh Status Prepregnancy Weight lbs Domestic Partner Domestic Partner Phone Father Name Chief Station Engineer Status 11/18/19 1 CLOSED Fetus Data First Name Last Name Admitted to NICU Weight (g) Sex Living Outcome Pediatric Complications Fetus ID Race Codes Race Delivery Type 2834.95 F Full Term [id number] Jose Calculation Initial Jose Date Initial Exam Date Initial Exam Provider Initial Ultrasound Date Last Menstrual Period Date Ultra Sound Weeks Gestation 0 Eighteen To Twenty Week Jose Update Ultra Sound Date Fundal Height At Umbil Quickening Date Ultra Sound Latest Weeks Gestation Final Jose Confirmed By Final Jose Confirmed Date Final Jose Date Ultra Sound Latest Days Gestation 0 0 Menstrual History Last Menstrual Date Menses Monthly On Bcp Conception Prior Menses Frequency Hcg Plus Date Menarche Onset Age Delivery Information Delivery Date Delivery Type Labor Anesthesia Weeks Gestation Incision Type Labor Labor Length Hrs Delivered By Post Complications Tubal Sterilization Discharge Date Comments 1 39 Discharge Information Feeding Method Contraceptive Method Maternal HG B and HCT Levels Ob Episode Information Episode Created Date Number of Fetuses Patient Bloodtype Patient rh Status Prepregnancy Weight lbs Domestic Partner Domestic Partner Phone Father Name Chief Station Engineer Status 11/18/19 24 1 CLOSED Fetus Data First Name Last Name Admitted to NICU Weight (g) Sex Living Outcome Pediatric Complications Fetus ID Race Codes Race Delivery Type 3515.33 8 M Full Term [id number] Jose Calculation Initial Jose Date Initial Exam Date Initial Exam Provider Initial Ultrasound Date Last Menstrual Period Date Ultra Sound Weeks Gestation 0 Eighteen To Twenty Week Jose Update Ultra Sound Date Fundal Height At Umbil Quickening Date Ultra Sound Latest Weeks Gestation Final Jose Confirmed By Final Jose Confirmed Date Final Jose Date Ultra Sound Latest Days Gestation 0 0 Menstrual History Last Menstrual Date Menses Monthly On Bcp Conception Prior Menses Frequency Hcg Plus Date Menarche Onset Age Delivery Information Delivery Date Delivery Type Labor Anesthesia Weeks Gestation Incision Type Labor Labor Length Hrs Delivered By Post Complications Tubal Sterilization Discharge Date Comments 5 40 Discharge Information Feeding Method Contraceptive Method Maternal HG B and HCT Levels Ob Episode Information Episode Created Date Number of Fetuses Patient Bloodtype Patient rh Status Prepregnancy Weight lbs Domestic Partner Domestic Partner Phone Father Name Chief Station Engineer Status 11/18/19 24 1 CLOSED Fetus Data First Name Last Name Admitted to NICU Weight (g) Sex Living Outcome Pediatric Complications Fetus ID Race Codes Race Delivery Type , Spontane ous [id number] Jose Calculation Initial Jose Date Initial Exam Date Initial Exam Provider Initial Ultrasound Date Last Menstrual Period Date Ultra Sound Weeks Gestation 0 Eighteen To Twenty Week Jose Update Ultra Sound Date Fundal Height At Umbil Quickening Date Ultra Sound Latest Weeks Gestation Final Jose Confirmed By Final Jose Confirmed Date Final Jose Date Ultra Sound Latest Days Gestation 0 0 Menstrual History Last Menstrual Date Menses Monthly On Bcp Conception Prior Menses Frequency Hcg Plus Date Menarche Onset Age Delivery Information Delivery Date Delivery Type Labor Anesthesia Weeks Gestation Incision Type Labor Labor Length Hrs Delivered By Post Complications Tubal Sterilization Discharge Date Comments 3 10 Discharge Information Feeding Method Contraceptive Method Maternal HG B and HCT Levels
--- OUTSIDE RECORDS SUMMARY | 2024-11-28 07:12 | XMS_ITS | Patient Health Record ---
Author Organization [facility] Address [address] [place] [address] Care Team Providers Care Aircraft Technician Name Role Phone Sameera Perez Primary Care Provider [phone] Heather Garcia Unavailable Allergies Allergen (clinical drug ingredient) Drug/Non Drug Allergy documented on EMR Reaction Allergy Type Onset Date Status Articaine-EPINEPHrine Unknown Drug Allergy Active Penicillin Unknown Drug Allergy Active Reason For Referral No Information Medications Medication SIG (Take, Route, Frequency, Duration) Notes Start Date End Date Status Celecoxib 100 MG TAKE 1 CAPSULE BY MO UTH 2 TIMES DAILY FOR 30 DAYS. Oral; Duration: 30 Days Active Levothyroxine Sodium 88 MCG TAKE 1 TABLE T BY MOUTH EVERY DAY Oral; Duration: 90 Days Active hydrOXYzine HCl 50 MG 1 tablet as needed Orally twice a day Active Escitalopram Oxalate 10 MG TAKE 1 TABLET BY MOUTH EVERY DAY Oral; Duration: 90 Days Active Abilify 5 MG 1 tablet Orally Once a day; Duration: 30 days Active Baclofen 10 MG TAKE 1 TABLET (10 MG TOTAL) BY MOUTH 3 (THREE) TIMES DAILY FOR 30 DAYS. Oral; Duration: 90 Days Active traZODone HCl 50 MG 1 tablet at bedtime as needed Orally Once a day; Duration: 30 days Active Gabapentin 300 MG TAKE 3 CAPSULES BY M OUTH 2 TIMES A DAY. Oral; Duration: 30 Days Active Montelukast Sodium 10 MG Oral; Duration: 90 Days Active buPROPion HCl ER (XL) 300 MG 1 tablet in the morning Oral Once a day; Duration: 30 days Active buPROPion HCl ER (XL) 150 MG 1 tablet in the morning Orally Once a day; Duration: 30 days Unknown Celecoxib 100 MG Oral; Duration: 30 Days Active Social History Tobacco Use: Social History Observation Description Date Details (start date - stop date) Current Smoker NA - NA Sex Assigned At : Social History Observation Description Sex Assigned At Female Tobacco Control (Standard) Question Answer Notes Tobacco use: Current every day smoker Additional Findings: Tobacco user e-cigarette Section Notes: HISTORY: States charge of Fraud and Diversion and something else a couple of years ago. No fpc or fpc. Has pre trial and does not know how long she is on probation before. PO is Joe Perera. Was depressed and anxious as a child. Has always felt nervous. States she was the kid that always took care of everyone. Her mother left when she was 3 years old and father was an alcoholic. States parents tried to put her in a Behavioral health place at age 8 yo for they thought I was using drugs. First meds when she was 21 yo. Past Suicide Attempts: x 1 before Rehab. In September, took pills didn't tell anyone. Inpatient Rehab: x 5-6 and completed two. Cigarette/Vape: cigg, one pack a day. Drugs/Alcohol: started using Marijuana at age 15 yo, then Cocaine, Crack. Reports in between her abused Alcohol. Tried Nitrous Oxide. Last use was September 08. Therapy: Rosa Anderson, [facility] at [facility]. To start EMDR Therapy. PSYCHOSOCIAL HISTORY: Family history or mental illness: Mother has anxiety and depression, Marijuana grandmother has anxiety, sister on mother has Bipolar and multiple peers, anxiety and depression. Family history of suicide attempts/completions: Family history of drug/alcohol use: brother r, sister, mother lots of family member Raised by: Parents and mother left when she was 3 yo. Father was alcoholic. Violent state she would have her paternal grandmother. Grew up with her blood brother and then father step-mother, client did not get along with her. Step- mother had a son. Foster home: Childhood was: : x 2, and , currently for 4 years. Children: 3 biological children. ages 9 yo, 16 yo and 20 yo Education: has [employer] License, is currently not working Legal: arrested x 3 for , intoxication, Substance use: Hobbies: still searching for that Allergies: PCN, Artcaine. PAST PSYCHOTROPIC MEDICATIONS: Latuda 60 mg (insurance wouldn't pay), Depakote, Sertraline, Bupropion, Trazodone 150 mg for sleep, Melatonin 10 mg bedtime, PCP: Celeste Grossman APN ( at [facility] in [place] COMMUNITY DEVELOPMENT DIRECTOR: DR. Hayward in [facility] control: had ablation Menstrual Period: none due to ablation This ia a 40 year old female who lives with her and her two biological children ages 9 yo and 16 yo and her 13 to step-son, in [place]. HISTORY: States charge of Fraud and Diversion and something else a couple of years ago. No fpc or fpc. Has pre trial and does not know how long she is on probation before. PO is Mckenney Perera. Was depressed and anxious as a child. Has always felt nervous. States she was the kid that always took care of everyone. Her mother left when she was 3 years old and father was an alcoholic. States parents tried to put her in a Behavioral health place at age 8 yo for they thought I was using drugs. First meds when she was 21 yo. Past Suicide Attempts: x 1 before Rehab. In September, took pills didn't tell anyone. Inpatient Rehab: x 5-6 and completed two. Cigarette/Vape: cigg, one pack a day. Drugs/Alcohol: started using Marijuana at age 15 yo, then Cocaine, Crack. Reports in between her abused Alcohol. Tried Nitrous Oxide. Last use was September 08. Therapy: Rosa Anderson, [facility] at [facility]. To start EMDR Therapy. PSYCHOSOCIAL HISTORY: Family history or mental illness: Mother has anxiety and depression, Marijuana grandmother has anxiety, sister on mother has Bipolar and multiple peers, anxiety and depression. Family history of suicide attempts/completions: Family history of drug/alcohol use: brother r, sister, mother lots of family member Raised by: Parents and mother left when she was 3 yo. Father was alcoholic. Violent state she would have her paternal grandmother. Grew up with her blood brother and then father step-mother, client did not get along with her. Step- mother had a son. Foster home: Childhood was: : x 2, and , currently for 4 years. Children: 3 biological children. ages 9 yo, 16 yo and 20 yo Education: has [employer] License, is currently not working Legal: arrested x 3 for , intoxication, Substance use: Hobbies: still searching for that Allergies: PCN, Artcaine. PAST PSYCHOTROPIC MEDICATIONS: Latuda 60 mg (insurance wouldn't pay), Depakote, Sertraline, Bupropion, Trazodone 150 mg for sleep, Melatonin 10 mg bedtime, PCP: eCleste Grossman APN ( at [facility] in [place] COMMUNITY DEVELOPMENT DIRECTOR: DR. Hayward in [place] control: had ablation Menstrual Period: none due to ablation This ia a 40 year old female who lives with her and her two biological children ages 9 yo and 16 yo and her 13 to step-son, in [place]. HISTORY: States charge of Fraud and Diversion and something else a couple of years ago. No fpc or fpc. Has pre trial and does not know how long she is on probation before. PO is Joe Perera. Was depressed and anxious as a child. Has always felt nervous. States she was the kid that always took care of everyone. Her mother left when she was 3 years old and father was an alcoholic. States parents tried to put her in a Behavioral health place at age 8 yo for they thought I was using drugs. First meds when she was 21 yo. Past Suicide Attempts: x 1 before Rehab. In September, took pills didn't tell anyone. Inpatient Rehab: x 5-6 and completed two. Cigarette/Vape: cigg, one pack a day. Drugs/Alcohol: started using Marijuana at age 15 yo, then Cocaine, Crack. Reports in between her abused Alcohol. Tried Nitrous Oxide. Last use was September 08. Therapy: Rosa Anderson, [facility] at [facility]. To start EMDR Therapy. PSYCHOSOCIAL HISTORY: Family history or mental illness: Mother has anxiety and depression, Marijuana grandmother has anxiety, sister on mother has Bipolar and multiple peers, anxiety and depression. Family history of suicide attempts/completions: Family history of drug/alcohol use: brother r, sister, mother lots of family member Raised by: Parents and mother left when she was 3 yo. Father was alcoholic. Violent state she would have her paternal grandmother. Grew up with her blood brother and then father step-mother, client did not get along with her. Step- mother had a son. Foster home: Childhood was: : x 2, and , currently for 4 years. Children: 3 biological children. ages 9 yo, 16 yo and 20 yo Education: has [employer] License, is currently not working Legal: arrested x 3 for , intoxication, Substance use: Hobbies: still searching for that Allergies: PCN, Artcaine. PAST PSYCHOTROPIC MEDICATIONS: Latuda 60 mg (insurance wouldn't pay), Depakote, Sertraline, Bupropion, Trazodone 150 mg for sleep, Melatonin 10 mg bedtime, PCP: Celeste Grossman APN ( at [facility] in [place] COMMUNITY DEVELOPMENT DIRECTOR: DR. Hayward in [facility] control: had ablation Menstrual Period: none due to ablation This ia a 40 year old female who lives with her and her two biological children ages 9 yo and 16 yo and her 13 to step-son, in [place]. HISTORY: States charge of Fraud and Diversion and something else a couple of years ago. No fpc or fpc. Has pre trial and does not know how long she is on probation before. PO is Joe Perera. Was depressed and anxious as a child. Has always felt nervous. States she was the kid that always took care of everyone. Her mother left when she was 3 years old and father was an alcoholic. States parents tried to put her in a Behavioral health place at age 8 yo for they thought I was using drugs. First meds when she was 21 yo. Past Suicide Attempts: x 1 before Rehab. In September, took pills didn't tell anyone. Inpatient Rehab: x 5-6 and completed two. Cigarette/Vape: cigg, one pack a day. Drugs/Alcohol: started using Marijuana at age 15 yo, then Cocaine, Crack. Reports in between her abused Alcohol. Tried Nitrous Oxide. Last use was September 08. Therapy: Rosa Anderson, [facility] at [facility]. To start EMDR Therapy. PSYCHOSOCIAL HISTORY: Family history or mental illness: Mother has anxiety and depression, Marijuana grandmother has anxiety, sister on mother has Bipolar and multiple peers, anxiety and depression. Family history of suicide attempts/completions: Family history of drug/alcohol use: brother r, sister, mother lots of family member Raised by: Parents and mother left when she was 3 yo. Father was alcoholic. Violent state she would have her paternal grandmother. Grew up with her blood brother and then father step-mother, client did not get along with her. Step- mother had a son. Foster home: Childhood was: : x 2, and , currently for 4 years. Children: 3 biological children. ages 9 yo, 16 yo and 20 yo Education: has [employer] License, is currently not working Legal: arrested x 3 for , intoxication, Substance use: Hobbies: still searching for that Allergies: PCN, Artcaine. PAST PSYCHOTROPIC MEDICATIONS: Latuda 60 mg (insurance wouldn't pay), Depakote, Sertraline, Bupropion, Trazodone 150 mg for sleep, Melatonin 10 mg bedtime, PCP: Celeste Grossman APN ( at [facility] in [place] COMMUNITY DEVELOPMENT DIRECTOR: DR. Hayward in [facility] control: had ablation Menstrual Period: none due to ablation This ia a 40 year old female who lives with her and her two biological children ages 9 yo and 16 yo and her 13 to step-son, in [place]. 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) Active confirmed Problem Tobacco user (045515703) Nicotine dependence, unspecified, uncomplicated (F17.200) Active confirmed Problem Posttraumatic stress disorder (22853224) PTSD (post-traumatic stress disorder) (F43.10) Active confirmed Problem Bipolar 1 disorder (835771821) Bipolar 1 disorder (F31.9) Active confirmed Problem Generalized anxiety disorder (64680252) ELEN (generalized anxiety disorder) (F41.1) Active confirmed Problem Cocaine dependence (99448588) Cocaine dependence without complication (F14.20) Active confirmed Problem Opioid dependence (41170513) Opioid use disorder, severe, dependence (F11.20) Active confirmed Vital Signs Heart Rate 67 /min 09/14/2024 Temperature 97.3 degrees Fahrenheit 03/16/2024 Respiratory Rate 16 /min 09/14/2024 Oximetry 98 % 09/14/2024 Blood pressure diastolic 70 mm Hg 09/14/2024 Height 60 in 09/14/2024 Blood pressure systolic 116 mm Hg 09/14/2024 Weight 127.2 lbs 09/14/2024 BMI 24.84 kg/m2 09/14/2024 Encounters Encounter Location Date Provider Diagnosis [address] [address] 12/02/2023 Sameera Perez [address] [address] 03/16/2024 Sameera Perez Nicotine dependence, unspecified, uncomplicated F17.200 ; Bipolar 1 disorder F31.9 ; PTSD (post-traumatic stress disorder) F43.10 ; ELEN (generalized anxiety disorder) F41.1 ; Sedative, hypnotic or anxiolytic dependence, uncomplicated F13.20 ; Cocaine dependence without complication F14.20 and Opioid use disorder, severe F11.[address] [address] 06/22/2024 Sameera Perez Bipolar 1 disorder F31.9 ; ELEN (generalized anxiety disorder) F41.1 and Nicotine dependence, unspecified, uncomplicated F17.[address] [address] 09/14/2024 Sameera Perez PTSD (post-traumatic stress disorder) F43.10 and Bipolar 1 disorder F31.9 Assessments Encounter Date Diagnosis (ICD Code) Assessment Notes Treatment Notes Treatment Clinical Notes Section Notes 03/16/2024 Nicotine dependence, unspecified, uncomplicated (ICD-10 - F17.200) 06/22/2024 Bipolar 1 disorder (ICD-10 - F31.9) Continue current medications. Medications ordered vis order connect. Continue services as scheduled. Labs completed recently. May self-administer medications or be administered own oral medications per [facility] protocols. Provided informed consent with understanding of side effects, adverse effects, risks and benefits as well as alternative treatments as previously discussed and with the above recommended medications & other aspects of the treatment program. Agrees to return sooner if symptoms worsen or suicidal or homicidal ideations occur. 09/14/2024 PTSD (post-traumatic stress disorder) (ICD-10 - F43.10) Continue current medications. Continue services as scheduled. Labs completed recently. May self-administer medications or be administered own oral medications per [facility] protocols. Provided informed consent with understanding of side effects, adverse effects, risks and benefits as well as alternative treatments as previously discussed and with the above recommended medications & other aspects of the treatment program. Agrees to return sooner if symptoms worsen or suicidal or homicidal ideations occur. 09/14/2024 Bipolar 1 disorder (ICD-10 - F31.9) 06/22/2024 ELEN (generalized anxiety disorder) (ICD-10 - F41.1) 03/16/2024 Bipolar 1 disorder (ICD-10 - F31.9) 03/16/2024 PTSD (post-traumatic stress disorder) (ICD-10 - F43.10) 06/22/2024 Nicotine dependence, unspecified, uncomplicated (ICD-10 - F17.200) 03/16/2024 ELEN (generalized anxiety disorder) (ICD-10 - F41.1) 03/16/2024 Sedative, hypnotic or anxiolytic dependence, uncomplicated (ICD-10 - F13.20) 03/16/2024 Cocaine dependence without complication (ICD-10 - F14.20) 03/16/2024 Opioid use disorder, severe (ICD-10 - F11.20) 03/16/2024 Other Continue curren t medications. Reviewed Prescription Monitoring program. Continue services as scheduled. Labs completed recently. May self-administer medications or be administered own oral medications per [facility] protocols. Provided informed consent with understanding of side effects, adverse effects, risks and benefits as well as alternative treatments as previously discussed and with the above recommended medications & other aspects of the treatment program. Agrees to return sooner if symptoms worsen or suicidal or homicidal ideations occur. Plan Of Treatment No Information Medical (General) History Medical History History ICD Code IBS headaches bronchitis hypothyroid Cocaine dependence in early, early partial, sustained full, or sustained partial remission F14.21 Alcohol abuse F10.10 Opioid dependence, uncomplicated F11.20 MDD (major depressive disorder), recurre nt episode, moderate F33.1 Anxiety F41.9 Surgical History Surgery Date(Month/Year) ablation L knee surgery/tibia L ankle surgery Hospitalization History Reason Date(Month/Year) [facility] for depression/SI 12/10/20
--- OUTSIDE RECORDS SUMMARY | 2024-11-28 07:12 | XMS_ITS | Encounter Summary ---
Author Organization [facility] Address [facility] [place] [address] Care Team Providers Care Batter Mixer Helper Name Role Phone Celeste Grossman INSURANCE ACCOUNT REPRESENTATIVE Primary Care Provider [phone] Encounter Details Date Type Department Care Team (Late st Contact Info) Description 11/01/2024 Results Follow-Up [facility] Family [facility] Medicine - [place] [address] [place] [address] Celeste Grossman, INSURANCE ACCOUNT REPRESENTATIVE [address] [place] [address] HEMOGLOBIN, GLYCOSYLATED, TSH W/REFLEX, LIPID PANEL, Additional followed-up results: 2 Social History Tobacco Use Types Packs/Day Years Used Date Smoking Tobacco: Former Cigarettes 1 23 Passive Smoke Exposure: Past Smokeless Tobacco: Never Alcohol Use Standard Drinks/Week Comments Not Currently 0 (1 standard drink = 0.6 oz pur e alcohol) RARELY PHQ-2 Answer Date Recorded Patient Health Questionnaire-2 Score 0 07/04/2023 Comments No Sex and Gender Information Value Date Recorded Sex Assigned at Female 07/11/2018 2:48 AM CLIENT SERVER DEVELOPER Legal Sex Female 6:41 PM CDT Gender Identity Female 07/11/2018 2:48 AM CLIENT SERVER DEVELOPER Sexual Orientation Not on file documented as [...] Talamantes RN Active documented in this encounter Progress Notes * Celeste Grossman NP - 11/01/2024 4:22 PM CDT Your blood count, liver, kidney function look good. Your cholesterol is elevated, work on healthy diet. Increase fruits and veges, decrease fried foods, no fast foods. Your thyroid level does show that you need to increase your medication slightly. I will send in a new prescription. Recheck labs in3 months. documented in this encounter Plan of Treatment Upcoming Encounters Date Type Department Care Team (Late st Contact Info) Description 02/04/2025 8:00 AM CDT Office Visit [facility] Family and Sports Medicine - [place] [address] [place] [address] Celeste Grossman NP [address] [place] [address] Scheduled Orders Name Type Priority Associated Diagnoses Orde r Schedule TSH W/REFLEX Lab Routine Hypothyroidism (acquired) Expected: 02/01/2025, Expires: 11/01/2025 documented as of this encounter Visit Diagnoses Diagnosis Hypothyroidism (acquired)- Primary Unspecified hypothyroidism documented in this encounter Additional Health Concerns Assessment Noted Time PHQ-9 Depression Total Score: 1 07/04/19 24 2:28 PM CLIENT SERVER DEVELOPER documented as of this encounter Care Teams Batter Mixer Helper Relationship Specialty Start Date End Date Celeste Grossman, INSURANCE ACCOUNT REPRESENTATIVE [address] [place] [address] PCP - General Nurse Practitioner Family 04/03/18 documented as of this encounter
--- OUTSIDE RECORDS SUMMARY | 2024-11-28 07:12 | XMS_ITS | Encounter Summary ---
Author Organization [facility] Address [facility] [place] [address] Care Team Providers Care Waterproofer Name Role Phone Celeste Grossman NP Primary Care Provider [phone] Encounter Details Date Type Department Care Team (Late st Contact Info) Description 10/23/2024 Results Follow-Up [facility] [address] [place], [place] [id number] Celeste Grossman, SHEET METAL LAYOUT WORKER [address] [place] [id number] MG SCREENING W CYDNEY ABILIO DIGI Social History Tobacco Use Types Packs/Day Years [...] Sex Assigned at Female 07/11/2018 2:48 AM INFORMATICA DEVELOPER Legal Sex Female 6:41 PM CDT Gender Identity Female 07/11/2018 2:48 AM INFORMATICA DEVELOPER Sexual Orientation Not on file documented [...] Progress Notes * Celeste Grossman NP - 10/23/2024 1:53 PM CDT Mammogram is normal, recheck yearly. documented in this encounter Plan of Treatment Upcoming Encounters Date Type Department Care Team (Late st Contact Info) Description 02/04/2025 8:00 AM CDT Office Visit [facility] Family [facility] Medicine - [place] [address] [place] [address] Celeste Grossman NP [address] [place] [address] documented as of this encounter Visit Diagnoses Not on filedocumented in this encounter Additional Health Concerns Assessment Noted Time PHQ-9 Depression Total Score: 1 07/04/19 24 2:28 PM INFORMATICA DEVELOPER documented as of this encounter Care Teams Waterproofer Relationship Specialty Start Date End Date Celeste Grossman NP [address] [place] [address] PCP - General Nurse Practitioner Family 04/03/18 documented as of this encounter
--- OUTSIDE RECORDS SUMMARY | 2024-11-28 07:12 | XMS_ITS | Encounter Summary ---
Author Organization [facility] Address [facility] [place] [address] Care Team Providers Care Can Filling Machine Operator Name Role Phone Celeste Grossman INVESTMENT UNDERWRITER Primary Care Provider [phone] Encounter Details Date Type Department Care Team (Late st Contact Info) Description 06/06/2024 [employer] Message Enc [facility] Family [facility] Medicine - [place] [address] [place] [address] Celeste Grossman, INVESTMENT UNDERWRITER [address] [place] [address] Ozempic Social History Tobacco Use Types Packs/Day Years [...] Sex Assigned at Female 07/11/2018 2:48 AM INDUSTRIAL TRUCK OPERATOR Legal Sex Female 6:41 PM CDT Gender Identity Female 07/11/2018 2:48 AM INDUSTRIAL TRUCK OPERATOR Sexual Orientation Not on file documented as [...] Date Author Status No 07/18/2018 10:48 PM LMT Marbin Talamantes RN Active documented in this encounter Plan of Treatment Upcoming Encounters Date Type Department Care Team (Late st Contact Info) Description 02/04/2025 8:00 AM CDT Office Visit [facility] Family [facility] - [place] [address] [place] [address] Celeste Grossman NP [address] [place] [address] documented as of this encounter Visit Diagnoses Not on filedocumented in this encounter Additional Health Concerns Assessment Noted Time PHQ-9 Depression Total Score: 1 07/04/19 24 2:28 PM INDUSTRIAL TRUCK OPERATOR documented as of this encounter Care Teams Can Filling Machine Operator Relationship Specialty Start Date End Date Celeste Grossman NP [address] [place] [address] PCP - General Nurse Practitioner Family 04/03/18 documented as of this encounter
--- OUTSIDE RECORDS SUMMARY | 2024-11-28 07:12 | XMS_ITS | Encounter Summary ---
Author Organization [facility] Address [facility] [place] [address] Care Team Providers Care Maintenance Services Dispatcher Name Role Phone Celeste Grossman NP Primary Care Provider [phone] Encounter Details Date Type Department Care Team (Late st Contact Info) Description 10/30/2024 [employer] Message Formerly [facility] Family [facility] - [place] [address] [facility] Provider Zepbound Social History Tobacco Use Types Packs/Day Years [...] Sex Assigned at Female 07/11/2018 2:48 AM COFFEE URN ATTENDANT Legal Sex Female 6:41 PM CDT Gender Identity Female 07/11/2018 2:48 AM COFFEE URN ATTENDANT Sexual Orientation Not on file documented as [...] Description 02/04/2025 8:00 AM CDT Office Visit [facility] - [place] [address] [place] [address] Celeste Grossman NP [address] [place] [address] documented as of this encounter Visit Diagnoses Not on filedocumented in this encounter Additional Health Concerns Assessment Noted Time PHQ-9 Depression Total Score: 1 07/04/19 24 2:28 PM COFFEE URN ATTENDANT documented as of this encounter Care Teams Maintenance Services Dispatcher Relationship Specialty Start Date End Date Celeste Grossman NP [address] [place] [address] PCP - General Nurse Practitioner Family 04/03/18 documented as of this encounter
--- OUTSIDE RECORDS SUMMARY | 2024-11-28 07:12 | XMS_ITS | Encounter Summary ---
Author Organization [facility] Address [facility] [place] [address] Care Team Providers Care Manager Inside Name Role Phone Celeste Grossman SOFTWARE APPLICATIONS DESIGNER Primary Care Provider [phone] Encounter Details Date Type Department Care Team (Late st Contact Info) Description 06/09/2023 Mass Appealt Message Enc [facility] Family and Sports Medicine - [place] [address] [place] [address] Celeste Grossman, SOFTWARE APPLICATIONS DESIGNER [address] [place] [address] Ozempic Social History Tobacco Use Types Packs/Day Years Used Date Smoking Tobacco: Former Cigarettes 1 23 Smokeless Tobacco: Never Alcohol Use Standard Drinks/Week Comments Yes 0 (1 standard drink = 0.6 oz pur e alcohol) RARELY PHQ-2 Answer Date Recorded Patient Health Questionnaire-2 Score 4 10/29/2022 Comments No Sex and Gender Information Value Date Recorded Sex Assigned at Female 07/11/2018 2:48 AM POLICE AND FIRE DISPATCHER Legal Sex Female 6:41 PM CDT Gender Identity Female 07/11/2018 2:48 AM POLICE AND FIRE DISPATCHER Sexual Orientation Not on file documented as [...] Progress Notes * Celeste Grossman NP - 06/09/2023 10:52 AM CST Go to 1mg CE AND FIRE DISPATCHER documented in this encounter Plan of Treatment Upcoming Encounters Date Type Department Care Team (Late st Contact Info) Description 02/04/2025 8:00 AM CDT Office Visit [facility] Family [facility] - [place] [address] [place] [address] Celeste Grossman NP [address] [place] [address] documented as of this encounter Visit Diagnoses Not on filedocumented in this encounter Additional Health Concerns Assessment Noted Time PHQ-9 Depression Total Score: 14 023 8:41 AM CDT documented as of this encounter Care Teams Manager Inside Relationship Specialty Start Date End Date Celeste Grossman NP [address] [place] [address] PCP - General Nurse Practitioner Family 04/03/18 documented as of this encounter
--- OUTSIDE RECORDS SUMMARY | 2024-11-28 07:12 | XMS_ITS | Encounter Summary ---
Author Organization [facility] Address Pending sale to [facility] [place] [address] Care Team Providers Care Time Cycle Operator Name Role Phone Celeste Grossman RELIGION DEPARTMENT CHAIR Primary Care Provider [phone] Encounter Details Date Type Department Care Team (Late st Contact Info) Description 07/12/2023 Direct Grid Technologiest Message Enc [facility] Family and Sports Medicine - [place] [address] [place] [address] Celeste Grossman, RELIGION DEPARTMENT CHAIR [address] [place] [address] [employer] Social History Tobacco Use Types Packs/Day Years Used Date Smoking Tobacco: Former Cigarettes 1 23 Smokeless Tobacco: Never Alcohol Use Standard Drinks/Week Comments Yes 0 (1 standard drink = 0.6 oz pur e alcohol) RARELY PHQ-2 Answer Date Recorded Patient Health Questionnaire-2 Score 0 07/04/2023 Comments No Sex and Gender Information Value Date Recorded Sex Assigned at Female 07/11/2018 2:48 AM BOARD MEMBER Legal Sex Female 6:41 PM CDT Gender Identity Female 07/11/2018 2:48 AM BOARD MEMBER Sexual Orientation Not on file documented as [...] Assessment Author Status Yes 07/18/2018 10:48 PM LMT Marbin Talamantes RN Active * Do you [...] Date Author Status No 07/18/2018 10:48 PM Marbin Malone RN Active documented in this encounter Progress Notes * Celeste Grossman NP - 07/12/2023 1:01 PM CST Either use 1/2 cap daily or take it every other or every 3 days D MEMBER documented in this encounter Plan of Treatment Upcoming Encounters Date Type Department Care Team (Late st Contact Info) Description 02/04/2025 8:00 AM CDT Office Visit [facility] Family [facility] Sports Medicine - [place] [address] [place] [address] Celeste Grossman NP [address] [place] [address] documented as of this encounter Visit Diagnoses Not on filedocumented in this encounter Additional Health Concerns Assessment Noted Time PHQ-9 Depression Total Score: 1 07/04/19 24 2:28 PM BOARD MEMBER documented as of this encounter Care Teams Time Cycle Operator Relationship Specialty Start Date End Date Celeste Grossman NP [address] [place] [address] PCP - General Nurse Practitioner Family 04/03/18 documented as of this encounter
--- OUTSIDE RECORDS SUMMARY | 2024-11-28 07:13 | XMS_ITS | Encounter Summary ---
Author Organization [facility] Address [address] [place] [address] Care Team Providers Care Software Testing Specialist Name Role Phone Celeste Grossman AUTOMOTIVE GLASS MECHANIC Primary Care Provider [phone] Encounter Details Date Type Department Care Team (Late st Contact Info) Description 11/30/2021 retsCloud Message Enc [facility] [place] [address] [place], [place] [id number] Tiffany Mayer, ANP- [facility]. [place] [address] [place], [place] [id number] Test results Social History Tobacco Use Types Packs/Day Years Used Date Smoking Tobacco: Every Day Cigarettes 1 23 Smokeless Tobacco: Never Alcohol Use Standard Drinks/Week Comments Yes 0 (1 standard drink = 0.6 oz pur e alcohol) RARELY PHQ-2 Answer Date Recorded PHQ-2 Score - If the patient scores above 3, please move on to questions 3-9 0 07/23/2021 Comments No Sex and Gender Information Value Date Recorded Sex Assigned at Female 07/11/2018 2:48 AM INSURANCE SALES AGENT Legal Sex Female 6:41 PM CDT Gender Identity Female 07/11/2018 2:48 AM INSURANCE SALES AGENT Sexual Orientation Not on file COVID-19 Exposure Response Date Recorded In the last 10 days, have yo u been in contact with someone who was confirmed or suspected to have Coronavirus/COVID-19? No / Unsure 11/27/2021 9:57 AM CDT documented as of this encounter Functional Status [...] Description 02/04/2025 8:00 AM CDT Office Visit [facility] Family and Sports Medicine - [place] [address] [place] [address] Celeste Grossman NP [address] [place] [address] documented as of this encounter Visit Diagnoses Not on filedocumented in this encounter Additional Health Concerns Assessment Noted Time PHQ-9 Depression Total Score: 2 07/24/19 22 9:18 AM CDT documented as of this encounter Care Teams Software Testing Specialist Relationship Specialty Start Date End Date Celeste Grossman NP [address] [place] [address] PCP - General Nurse Practitioner Family 04/03/18 documented as of this encounter
[2024-11-28] MEDS: LACTATED RINGERS 1,000 ML 30 ML IV CONT (07:47)
[2024-11-28] MEDS: TRANEXAMIC ACID 1,000 MG/10 ML AMPUL 1000 MG IV PUSH (07:48)
--- NOTE | 2024-11-28 08:19 | P.PNAN_ITS ---
Anes - Initial Pre Proc Eval Procedure: Operation Date: 11/28/24 08:30 Proposed Procedures p Bilateral Breast Augmentation Mammoplasty - Malick Kuhn MD Date/Time: 11/28/24 08:19 Surgeon: Malick Kuhn MD Pre Op Diagnosis: Micromastia Patient Data Age: 44 Gender: F Height: 1.6 m Weight: 59.4 kg Last Vital Signs Temp 98.3 F 11/28/24 07:36 Pulse 79 11/28/24 07:36 Resp 16 11/28/24 07:36 BP 126/87 11/28/24 07:36 Pulse Ox 99 11/28/24 07:36 O2 Del Method Room Air 11/28/24 07:36 Allergies Allergy/AdvReac Type Severity Reaction Status Date / Time Penicillins Allergy Intermediate Hives Verified 11/28/24 07:29 Home Medications ?Medication ?Instructions ?Recorded ?Confirmed ?Type bupropion HCl 300 mg 24 hr tablet, 300 mg PO DAILY 11/20/24 11/28/24 History extended release cholecalciferol (vitamin D3) 25 25 mcg PO DAILY 11/20/24 11/28/24 History mcg (1,000 unit) capsule (Vitamin D3) cyanocobalamin (vitamin B-12) 1,000 mcg PO DAILY 11/20/24 11/28/24 History 1,000 mcg capsule levothyroxine 100 mcg tablet 100 mcg PO DAILY 11/20/24 11/28/24 History montelukast 10 mg tablet 10 mg PO QPM 11/20/24 11/28/24 History Patient hx anesthesia problems: none Family hx anesthesia problems: none Results Review: All pre-operative results and documents have been reviewed as part of the pre- operative evaluation. [facility] Social History Social History Smoking status: Former smoker Tobacco type: e-cigarettes/vaping Second hand tobacco smoke exposure: Yes Substance use type: does not use Living arrangements: with family Anes - Eval Final PreProcedure Day of Procedure 11/28/24 08:19 Heart: regular rate and rhythm Lungs: clear to auscultation Airway: Mallampati scale class II Neurological: alert and oriented Last oral intake: >/= 8 hours ASA classification: II Anesthetic plan: proceed Anesthesia type and monitoring: general Results Review: All pre-operative results and documents have been reviewed as part of the pre- operative evaluation. Informed Consent: The patient's anesthetic plan and its attendant risks and benefits were discussed with the patient/family/POA. Questions were solicited and answers provided to the satisfaction of the patient/family/POA.
--- NOTE | 2024-11-28 08:23 | WPDHPUPDATE1 ---
History and Physical Update Update Date/Time: 11/28/24 08:23 History and Physical has been reviewed, including an updated exam of the patient. There are NO changes in the patient's condition. Risks, benefits, and alternatives have been discussed and questions answered. Patient agrees to proceed with procedure.
[2024-11-28] MEDS: ceFAZolin SODIUM 2 GM/20 ML SW SYRINGE IV PUSH (08:27)
--- NOTE | 2024-11-28 08:42 | SUR.PREOP ---
0815; FEMALE STAFF IN ROOM WHILE DR TERRELL MARKED PT. PT'S SPOUSE ALSO AT BEDSIDE
[2024-11-28] MEDS: LIDO 1%/EPINEPHRINE 1:100,000 10 ML VIAL 30 ML INFILTRATE (09:07)
--- NOTE | 2024-11-28 09:41 | W.PM.PROC2 ---
Procedure Note - Detailed Date of Procedure 11/28/24 Pre-op Diagnosis Micromastia Post-op Diagnosis Same Procedure Performed Bilateral augmentation mammaplasty Surgeon Malick Kuhn MD Anesthesia General Findings Bilateral Oanh Novoa SoftTouch 440cc Right: REF# [id number] SN [id number] Left: REF# [id number] SN [id number] Description of Procedure She is here today for bilateral breast augmentation. Previously and again today the risks, benefits, alternatives were discussed in extensive detail. I wanted her to be very realistic about the risks involved as well as expectations. We discussed aftercare and what to monitor for. Made sure answered all of her questions to her satisfaction today and consent was obtained. Marked in the preoperative holding area with their verification. The patient was taken to the operating room placed supine on the operating table. Anesthesia was provided by anesthesiology. A surgical time-out was taken. We cleansed the skin and 1% lidocaine and 0.25% Marcaine with epinephrine was used anesthetize as a field block. She was prepped and draped in a standard sterile fashion. Tegaderm nipple Mccullough were placed. A 15 blade used to make an incision along the inframammary fold. Dissection was continued at 45 degree angle until the chest wall as identified. I elevated a subfascial pocket in the appropriate dimensions based on our preoperative planning for the implant. I then copiously irrigated with saline solution and verified a strict hemostasis. Next the use a triple antibiotic and Betadine containing solution to irrigate the pocket. I washed my gloves with the triple antibiotic and Betadine solution. We washed the implant immediately upon opening it with this solution and only opened it when we needed it. I used implant funnel and no-touch technique. The implant was introduced into the pocket using the funnel. Having verified positioning of the implant this was closed using 2-0 PDS followed by 3-0 Monocryl in a running subcuticular 4-0 Monocryl followed by tissue glue. Fluffs and surgical bra were placed. Patient was awoke and taken to PACU without difficulty. All instrument sponge counts were correct at the end of the case. Estimated Blood Loss 20 Drains No Packing No Pathology None sent Complications No immediate complications Condition Stable Disposition PACU
[2024-11-28] MEDS: fentaNYL CITRATE INJ (*CRX) 100 MCG/2 ML VIAL 25 MCG IV PUSH ×3 (09:50→10:01)
--- NOTE | 2024-11-28 10:41 | WPDANESPN ---
Anes - Prog Note Post-Op Date/Time: 11/28/24 10:41 Vital Signs: Last Vital Signs Temp 97.2 F L 11/28/24 09:39 Pulse 90 11/28/24 10:22 Resp 16 11/28/24 10:22 BP 115/83 11/28/24 10:22 Pulse Ox 100 11/28/24 10:22 O2 Del Method Room Air 11/28/24 10:22 O2 Flow Rate 6 11/28/24 09:50 Pain Score (VAS): 3 I/O: Intake & Output 11/27/24 11/28/24 11/28/24 23:59 07:59 15:59 Intake Total 700 Balance 700 Patient Feedback: Patient satisfied with anesthetic care.
[2024-11-28] MEDS: oxyCODONE HCL (*CRX) 5 MG TAB IR PO (11:02)
== END 2024-11-28 11:09 | disposition home or self-care (01) ==
PROVIDERS: PCP Nurse Practitioner Family; Visit Provider Surgery Plastic and Reconstructive Surgery
PROC: (CPT 19325; principal; 2024-11-28 08:30)
DX: Z41.1 Encounter for cosmetic surgery (principal); N64.82 Hypoplasia of breast
CPT/HCPCS: 19325